=== PATIENT | female | born 2005 | race Two or more races ===

== ENCOUNTER 2024-11-05 14:14 | Emergency (ER) | payer MEDICAID, SELFPAY ==
[2024-11-05 14:15] VITALS: BMI 20.2
--- NOTE | 2024-11-05 14:25 | XR_ITS ---
Examination: PA lateral chest 2 views TECHNIQUE: Upright PA lateral chest 2 views Exam date and time: 06/05/2024 1429 hours Comparison June 27, 2019 INDICATIONS: Coughing chest pain beginning 3 days ago. FINDINGS: Normal heart size Lungs are clear. The osseous structures are intact IMPRESSION: No active disease
[2024-11-05 14:26] VITALS: BP 132/87; PULSE 121; RESP 20; TEMP 38.1; O2SAT 100
[2024-11-05] MEDS: ACETAMINOPHEN 500 MG TABLET 1000 MG PO (14:41)
--- NOTE | 2024-11-05 15:00 | EDNOTE_ITS ---
Upper Respiratory Inf. RME/HPI General Chief Complaint: Flu Like Symptoms Stated Complaint: BODYACHES, FEVER, COUGH Time Seen by Provider: 11/05/24 14:17 Arrival date/time: 11/05/24 14:14 19-year-old female with no significant medical problem presents the emergency department complains of bodyaches, cough, fever and chills ongoing for the last couple of days. Patient reports no chance of patient reports no dysuria polyuria Limitations: no limitations Related Data Previous Rx's ?Medication ?Instructions ?Recorded ondansetron HCl 4 mg tablet 4 mg PO Q8H PRN nausea and 06/02/21 (Zofran) vomiting #20 tabs cyclobenzaprine 5 mg tablet 5 mg PO TID PRN muscle spasm #15 11/14/22 tabs ibuprofen 600 mg tablet 600 mg PO Q6H #30 tabs 06/12/23 ondansetron 4 mg disintegrating 4 mg PO Q8H PRN nausea and 06/12/23 tablet vomiting #10 tabs ondansetron 4 mg disintegrating 4 mg PO Q8H PRN nausea and 06/02/24 tablet vomiting #20 tabs benzonatate 100 mg capsule 100 mg PO TID #14 caps 11/05/24 ibuprofen 600 mg tablet 600 mg PO Q6H #30 tabs 11/05/24 Allergies Allergy/AdvReac Type Severity Reaction Status Date / Time No Known Allergies Allergy Verified 06/12/23 14:46 Review of Systems Review of Systems Systems Reviewed: All systems reviewed, normal except as documented Constitutional Constitutional: Reports system reviewed and no additional complaints, except as documented, Reports body ache(s), Reports chills, Reports fever(s) and Reports headache(s) Eyes Eyes: Reports system reviewed and no additional complaints, except as documented and Denies blurry vision ENT Ears, Nose, Mouth, and Throat: Reports system reviewed and no additional complaints, except as documented, Reports headache(s), Reports nasal congestion and Reports nasal discharge Cardiovascular Cardiovascular: Reports system reviewed and no additional complaints, except as documented, Denies chest pain and Denies dyspnea Respiratory Respiratory: Reports system reviewed and no additional complaints, except as documented, Reports chest congestion, Reports cough and Denies dyspnea Gastrointestinal Gastrointestinal: Reports system reviewed and no additional complaints, except as documented and Denies abdominal pain Integumentary/Breasts Skin/Breast: Reports system reviewed and no additional complaints, except as documented and Denies rash Neurologic Neurologic: Reports system reviewed and no additional complaints, except as documented, Reports as per HPI and Reports headache(s) Past Medical History Past Medical History CARDIAC: Negative Congestive Heart Failure RESPIRATORY: Negative Chronic Obstructive Pulmonary Disease (COPD) GENITOURINARY: Negative Renal Disease ENDOCRINE: Negative Diabetes Mellitus Type 1 or Diabetes Mellitus Type 2 OTHER HISTORY: Negative Hospitalization, Autoimmune Disease, Down Syndrome, Developmental Delay, Shingles or Falls Social History SMOKING STATUS: Never smoker SUBSTANCE USE: does not use ED Exam General Limitations: Present no limitations General appearance: Present alert and in no apparent distress Head Head exam: Present atraumatic, normocephalic and normal inspection Eye Eye exam: Present normal appearance, PERRL and EOMI; Absent conjunctival injection ENT ENT exam: Present normal exam, normal oropharynx and mucous membranes moist Neck Neck exam: Present normal inspection, full ROM and trachea midline Chest Chest inspection: Present normal inspection and symmetric chest wall rise Respiratory Respiratory exam: Present normal lung sounds bilaterally; Absent respiratory distress, wheezes, stridor or prolonged expiratory phase Cardiovascular Cardiovascular exam: Present regular rate, normal rhythm and normal heart sounds Abdominal Exam Abdominal exam: Present soft and normal bowel sounds; Absent distention, tenderness, guarding, rebound or rigidity Extremities Exam Extremities exam: Present normal inspection and full ROM Back Exam Back exam: Present normal inspection and full ROM Neurological Exam Neurological exam: Present alert, oriented X3 and CN II-XII intact Psychiatric Psychiatric exam: Present normal affect and normal mood Skin Skin exam: Present warm, dry, intact and normal color Course Quality Measures none Orders Category Date Time Status Bedside COVID-19 Antigen Test NOW Care 11/05/24 14:25 Completed Bedside Influenza A&B Antigen Test NOW Care 11/05/24 14:25 Completed XR chest 2V Stat Exams 11/05/24 14:25 Completed Acetaminophen Tab [Tylenol ES Tab] Med 11/05/24 14:35 Discontinued 1,000 mg PO X1 ONE Vital Signs Vital signs: Vital Signs Temperature 100.6 F H 11/05/24 14:26 Pulse Rate 121 H 11/05/24 14:26 Respiratory Rate 20 11/05/24 14:26 Blood Pressure 132/87 H 11/05/24 14:26 Pulse Oximetry (%) 100 11/05/24 14:26 Oxygen Delivery Method Room Air 11/05/24 14:26 O2 saturation 100% room air within normal limits Upper Respiratory Infection MDM Narrative MDM Narrative:: 19-year-old female with no significant medical problem presents the emergency d epartment complains of bodyaches, cough, fever and chills ongoing for the last couple of days. Patient reports no chance of patient reports no dysuria polyuria On exam patient well-appearing patient does not appear ill or toxic in no acute distress Patient checked for flu and COVID and chest x-ray is obtained Chest x-ray shows no acute pneumonic infiltrates patient does test positive for influenza negative for COVID Symptoms highly consistent with influenza/viral illness Patient discharged home in no distress to follow-up with primary care doctor in the next 24 to 48 hours and for any worsening symptoms to return to the ER immediately Patient data External records reviewed:: [facility] previous records Clinical information provided by:: patient Social determinants that could affect healthcare access:: none Patient has the following chronic illnesses:: None How is presenting disease/condition affected by chronic disease/condition?: no chronic disease Evaluation data The following diagnostics were reviewed and interpreted by me:: lab results and radiology exam(s) Lab and/or radiology exams considered but not ordered:: Labs radiology obtained Interpretation Summary: Reviewed by me Medications / Prescriptions Medications or Prescriptions considered but not ordered:: Given Medication administrations:: Medication Administration History Discontinued Medications Acetaminophen (Acetaminophen 500 Mg Tablet) 1,000 mg PO X1 ONE Stop: 11/05/24 14:36 Last Admin: 11/05/24 14:41 Dose: 1,000 mg Documented By: MP Given Consultations Consultation(s) initiated? (list below): No Diagnosis Upper Respiratory Differential Diagnosis: upper respiratory infection, sinusitis, viral infection and pharyngitis Most likely diagnosis given after review of the tests above:: Viral infection Admission Indicated Admission indicated?: not indicated Admission Request Was there a request for admission?: No Disposition Plan Disposition Plan: Discharge Discharge Attestation Discharge Attestation: The patient and all family members were given an opportunity to ask questions and understood the discharge instructions. Discharge instructions specifically effects, indications for sooner follow up or return to the emergency department, and the expected course of current diagnosis. Patient condition: Stable Discharge Plan Plan Patient Disposition: HOME (Self Care) Disposition Comment: Stable Prescriptions/Referrals Prescriptions/Med Rec: New benzonatate 100 mg capsule 100 mg PO TID Qty: 14 0RF ibuprofen 600 mg tablet 600 mg PO Q6H Qty: 30 0RF No Action ondansetron HCl [Zofran] 4 mg tablet 4 mg PO Q8H PRN (Reason: nausea and vomiting) Qty: 20 0RF cyclobenzaprine 5 mg tablet 5 mg PO TID PRN (Reason: muscle spasm) Qty: 15 0RF ibuprofen 600 mg tablet 600 mg PO Q6H Qty: 30 0RF ondansetron 4 mg tablet,disintegrating 4 mg PO Q8H PRN (Reason: nausea and vomiting) Qty: 10 0RF ondansetron 4 mg tablet,disintegrating 4 mg PO Q8H PRN (Reason: nausea and vomiting) Qty: 20 0RF Referrals: Halle Soliman FNP [Primary Care Provider] - In 1 week Problem List Clinical Impression: Influenza Patient/Caregiver Discharge Instructions Education Materials: ED Influenza (Adult) Additional Instructions: Please follow up with your primary care doctor in the next 24-48hrs for any worsening symptoms return here immediately Print Language: Palauan Stand Alone Forms: [employer]ulu Award Info., Work/School Release, Patient Portal Info Letter PA/BENEFITS ANALYST Supervising Physician KEARA/NORMA Supervising Physician: Dr. reveles
== END 2024-11-05 15:15 | disposition home or self-care (01) ==
PROVIDERS: Emergency Provider Emergency Medicine; PCP Nurse Practitioner Family
DX: J11.1 Influenza due to unidentified influenza virus with other respiratory manifestations (principal)
CPT/HCPCS: 71046; 87400; 87811; 99283; A9270

== ENCOUNTER 2024-12-29 03:54 | Emergency (ER) | payer MEDICAID, SELFPAY ==
[2024-12-29 03:54] VITALS: BMI 20.2
[2024-12-29 04:12] VITALS: BP 110/73; PULSE 110; RESP 18; TEMP 36.6; O2SAT 98
--- NOTE | 2024-12-29 04:38 | EDRME_ITS ---
Rapid Medical Screening Exam [facility] Arrival date/time: 12/29/24 03:54 19F at approximately 12 weeks and with no significant PMH presents to ED with 2 days of pelvic pain and N/V. Patient denies dysuria, diarrhea, and vaginal bleeding. Chief Complaint: Abdominal Pain Vital signs: Vital Signs Temperature 97.9 F 12/29/24 04:12 Pulse Rate 110 H 12/29/24 04:12 Respiratory Rate 18 12/29/24 04:12 Blood Pressure 110/73 12/29/24 04:12 Pulse Oximetry (%) 98 12/29/24 04:12
--- NOTE | 2024-12-29 04:38 | XR_ITS ---
Examination: Complete OB ultrasound, less than 14 weeks, transabdominal Date and time of exam: December 29, 2024 0512 hrs. Indications: Pelvic pain beginning 11:00 AM yesterday, vaginal bleeding beginning 1 Technique: Obstetrical ultrasound images less than 14 weeks performed via transabdominal imaging Findings: A normal shaped single intrauterine gestation is present in the uterus. pole 5.3 cm corresponds to 12 weeks 0 day gestational age Cardiac motion 160 BPM Uterine area of fibroid degeneration 4.2 cm Adjacent subchorionic hemorrhage 2.6 x 0.9 x 2.4 cm Ultrasonographic survey of visible structures unremarkable. Amniotic fluid volume appears appropriate for this estimated gestational age. Right ovary 2.9 x 3.0 cm arterial flow 15 mm corpus luteum cyst Left ovary 2.9 x 3.2 cm arterial flow Impression: Viable intrauterine gestation 12 weeks 0 days Recommend short-term follow-up transvaginal pelvic sonography given the subchorionic hemorrhage.
--- NOTE | 2024-12-29 04:53 | PD.EDABDPN ---
ED Abdominal Pain RME/HPI General Chief Complaint: Abdominal Pain Stated complaint: LOWER ABD PAIN Time seen by provider: 12/29/24 04:52 Arrival date/time: 12/29/24 03:54 Source: patient Mode of arrival: ambulatory Limitations: no limitations RME / HPI RME / HPI narrative: 12/29/24 03:54 19F at approximately 12 weeks and with no significant PMH presents to ED with 2 days of pelvic pain and N/V. Patient denies dysuria, diarrhea, and vaginal bleeding. Dr. Bailey?s Main ED Evaluation: Related Data Previous Rx's ?Medication ?Instructions ?Recorded ondansetron HCl 4 mg tablet 4 mg PO Q8H PRN nausea and 06/02/21 (Zofran) vomiting #20 tabs cyclobenzaprine 5 mg tablet 5 mg PO TID PRN muscle spasm #15 11/14/22 tabs ibuprofen 600 mg tablet 600 mg PO Q6H #30 tabs 06/12/23 ondansetron 4 mg disintegrating 4 mg PO Q8H PRN nausea and 06/12/23 tablet vomiting #10 tabs ondansetron 4 mg disintegrating 4 mg PO Q8H PRN nausea and 06/02/24 tablet vomiting #20 tabs benzonatate 100 mg capsule 100 mg PO TID #14 caps 11/05/24 ibuprofen 600 mg tablet 600 mg PO Q6H #30 tabs 11/05/24 Allergies Allergy/AdvReac Type Severity Reaction Status Date / Time No Known Allergies Allergy Verified 06/12/23 14:46 Review of Systems Review of Systems Systems Reviewed: All systems reviewed, normal except as documented Past Medical History Past Medical History CARDIAC: Negative Congestive Heart Failure RESPIRATORY: Negative Chronic Obstructive Pulmonary Disease (COPD) GENITOURINARY: Negative Renal Disease ENDOCRINE: Negative Diabetes Mellitus Type 1 or Diabetes Mellitus Type 2 OTHER HISTORY: Negative Hospitalization, Autoimmune Disease, Down Syndrome, Developmental Delay, Shingles or Falls Social History SMOKING STATUS: Never smoker SUBSTANCE USE: does not use ED Exam General Limitations: Present no limitations General appearance: Present alert and in no apparent distress Head Head exam: Present atraumatic Eye Eye exam: Present normal appearance, PERRL and EOMI ENT ENT exam: Present normal exam, normal oropharynx and mucous membranes moist Neck Neck exam: Present normal inspection, full ROM and trachea midline Chest Chest inspection: Present normal inspection and symmetric chest wall rise Respiratory Respiratory exam: Present normal lung sounds bilaterally Cardiovascular Cardiovascular exam: Present regular rate, normal rhythm and normal heart sounds Abdominal Exam Abdominal exam: Present soft and normal bowel sounds Extremities Exam Extremities exam: Present normal inspection and full ROM Back Exam Back exam: Present normal inspection and full ROM Neurological Exam Neurological exam: Present alert, oriented X3 and CN II-XII intact Psychiatric Psychiatric exam: Present normal affect and normal mood Skin Skin exam: Present warm, dry, intact and normal color Course Quality Measures none Orders Category Date Time Status US OB <= 14 weeks fetus Stat Exams 12/29/24 04:38 Ordered Beta HCG,Quantitative Stat Lab 12/29/24 04:38 Ordered CBC Stat Lab 12/29/24 04:38 Ordered CMP [Comprehensive Metabolic Panel] Stat Lab 12/29/24 04:38 Ordered Urinalysis, C/S if Indicated Stat Lab 12/29/24 04:39 Ordered Metoclopramide [Reglan] Med 12/29/24 04:38 Discontinued 10 mg PO X1 ONE Vital Signs Vital signs: Vital Signs Temperature 97.9 F 12/29/24 04:12 Pulse Rate 110 H 12/29/24 04:12 Respiratory Rate 18 12/29/24 04:12 Blood Pressure 110/73 12/29/24 04:12 Pulse Oximetry (%) 98 12/29/24 04:12 Abdominal Pain MDM MDM Narrative MDM Narrative:: Scribe Attestation: I, Stephanie Callahan, am scribing for and in the presence of Dr. Bailey. Provider Notation: Although this document has been carefully reviewed, there may still be some phonetic and other typographical errors. These errors are purely grammatical due to imperfections in the software program and should not be construed in any way to compromise the substance of the patient's medical care during this visit. Patient data External records reviewed:: [facility] previous records Clinical information provided by:: patient Social determinants that could affect healthcare access:: none Patient has the following chronic illnesses:: see PMH How is presenting disease/condition affected by chronic disease/condition?: uneffected by Evaluation data The following diagnostics were reviewed and interpreted by me:: lab results Lab and/or radiology exams considered but not ordered:: n/a Medications / Prescriptions Medication administrations:: Medication Administration History Discontinued Medications Metoclopramide HCl (Metoclopramide 5 Mg Tablet) 10 mg PO X1 ONE Stop: 12/29/24 04:39 Last Admin: 12/29/24 04:58 Dose: 10 mg Documented By: ANAHI Discharge Plan Prescriptions/Referrals Prescriptions/Med Rec: No Action ondansetron HCl [Zofran] 4 mg tablet 4 mg PO Q8H PRN (Reason: nausea and vomiting) Qty: 20 0RF cyclobenzaprine 5 mg tablet 5 mg PO TID PRN (Reason: muscle spasm) Qty: 15 0RF ibuprofen 600 mg tablet 600 mg PO Q6H Qty: 30 0RF ondansetron 4 mg tablet,disintegrating 4 mg PO Q8H PRN (Reason: nausea and vomiting) Qty: 10 0RF ondansetron 4 mg tablet,disintegrating 4 mg PO Q8H PRN (Reason: nausea and vomiting) Qty: 20 0RF benzonatate 100 mg capsule 100 mg PO TID Qty: 14 0RF ibuprofen 600 mg tablet 600 mg PO Q6H Qty: 30 0RF Patient/Caregiver Discharge Instructions Print Language: Thai
[2024-12-29] MEDS: METOCLOPRAMIDE 5 MG TABLET 10 MG PO (04:58)
[2024-12-29 05:11] LABS: Collection Type, Urine Clean Catch
[2024-12-29 05:12] LABS: Basophils % (Auto) 0 % (0-2.5); Eosinophils # (Auto) 0.1 Thou/mm3 (0.0-0.5); Eosinophils % (Auto) 1 % (0-10); Hemoglobin 11.7 g/dL (12.0-16.0); Immature Granulocytes % (Auto) 0 % (0-0); Immature Granulocytes Auto 0.02 Thou/mm3 (0.00-0.00); Lymphocytes # (Auto) 1.6 Thou/mm3 (1.0-4.8); Lymphocytes % (Auto) 17 % (10-50); Mean Corpuscular HGB Conc 34.4 g/dl (31.0-37.0); Mean Corpuscular Hemoglobin 26.5 pg (25.0-35.0); Mean Corpuscular Volume 77 fL (80-100); Monocytes # (Auto) 0.6 Thou/mm3 (0.0-0.8); Monocytes % (Auto) 7 % (0-12); Neutrophils # (Auto) 6.8 Thou/mm3 (1.8-7.7); Neutrophils % (Auto) 75 % (37-80); Nucleated Red Blood Cell % 0 /100 WBC (0); Platelet Count 213 Thou/mm3 (140-440); RDW Standard Deviation 49.6 fL (36.4-46.3); Red Blood Count 4.42 Miln/mm3 (4.00-5.20); White Blood Count 9.1 Thou/mm3 (3.6-11.0)
[2024-12-29 05:18] LABS: Bacteria,Urine 1+; Bilirubin,Urine Negative (Negative); Blood,Urine 2+ (Negative); Clarity,Urine Turbid (Clear/Hazy); Color,Urine Lt-Yellow (Lt Yel-Yel); Glucose, Urine Negative (Negative); Ketones,Urine Negative (Negative); Leukocyte Esterase,Urine Positive (Negative); Nitrite,Urine Negative (Negative); PH,Urine 6.5 (5.0-7.0); Protein,Urine Negative (Neg - Trace); RBC,Urine 2 /hpf (0-3); Specific Gravity,Urine 1.011 (1.001-1.035); Squamous Epithelial Cell,Urine 9 /hpf (0-5); Urobilinogen,Urine Negative mg/dL (0.0-1.0); WBC,Urine 18 /hpf (0-5)
[2024-12-29 05:28] LABS: Culture Indicated,Urine Yes
[2024-12-29 06:18] VITALS: BP 119/76; PULSE 96; RESP 18; TEMP 36.6; O2SAT 97
[2024-12-29 06:27] LABS: Alanine Aminotransferase 10 U/L (10-49); Albumin, Serum 4.3 gm/dL (3.5-5.0); Albumin/Globulin Ratio 1.5 (1.2-2.2); Alkaline Phosphatase 49 U/L (46-116); Anion Gap 7 (7-16); Aspartate Amino Transferase 15 U/L (0-34); BUN/Creatinine Ratio 16 Ratio (12-20); Bilirubin,Total 0.2 mg/dL (0.3-1.2); Blood Urea Nitrogen 8 mg/dL (9-23); Carbon Dioxide 21.9 mMol/L (20.0-31.0); Chloride 107 mMol/L (98-107); Creatinine (Component) 0.5 mg/dL (0.6-1.3); Estimated Creatinine Clearance 150.4 mL/min (>60); Globulin 2.9 gm/dL (2.3-3.5); Glucose 97 mg/dL (74-106); Osmolality,Calculated 270 (275-295); Potassium 4.1 mMol/L (3.4-5.1); Sodium 136 mMol/L (136-145); Total Protein 7.2 gm/dL (5.7-8.2); eGFR > 60 See Note
[2024-12-29] MEDS: NITROFURANTOIN MACRO 100 MG CAPSULE PO (06:40)
--- NOTE | 2024-12-29 06:41 | EDNOTE_ITS ---
ED Abdominal Pain RME/HPI General Chief Complaint: Abdominal Pain Stated complaint: LOWER ABD PAIN Time seen by provider: 12/29/24 04:52 Arrival date/time: 12/29/24 03:54 RME / HPI RME / HPI narrative: 12/29/24 03:54 19F at approximately 12 weeks and with no significant PMH presents to ED with 2 days of pelvic pain and N/V. Patient denies dysuria, diarrhea, and vaginal bleeding. DR. GIMENEZ MAIN ED EVALUATION: 19 year old female who is 12 weeks , G1, P0, presents to the Emergency Department with complaint of pelvic pain. Pain is rated mild and described as cramping. Associated symptoms include mild vaginal bleeding, nausea, and vomiting. Symptoms are mild. No other symptoms reported at this time. PMHx: Denies any PMHx, surgeries, daily medications, or known allergies. Social Hx: No tobacco, alcohol, or substance use. Related Data Previous Rx's ?Medication ?Instructions ?Recorded ondansetron HCl 4 mg tablet 4 mg PO Q8H PRN nausea and 06/02/21 (Zofran) vomiting #20 tabs cyclobenzaprine 5 mg tablet 5 mg PO TID PRN muscle spa sm #15 11/14/22 tabs ibuprofen 600 mg tablet 600 mg PO Q6H #30 tabs 06/12 ondansetron 4 mg disintegrating 4 mg PO Q8H PRN nausea and 06/12/23 tablet vomiting #10 tabs ondansetron 4 mg disintegrating 4 mg PO Q8H PRN nausea and 06/02/24 tablet vomiting #20 tabs benzonatate 100 mg capsule 100 mg PO TID #14 caps 10/20 06/12 ibuprofen 600 mg tablet 600 mg PO Q6H #30 tabs 11/05 nitrofurantoin 100 mg PO Q12H 7 days #14 ca ps 12/29/24 monohydrate/macrocrystals 100 mg capsule (Macrobid) Allergies Allergy/AdvReac Type Severity Reaction Status Date / Time No Known Allergies Allergy Verified 06/12/23 14:46 Review of Systems Review of Systems Systems Reviewed: All systems reviewed, normal except as documented Narrative Review of Systems: GEN: No fever, no chills, no weight loss EYES: No discharge, no visual changes, no pain HEENT: No ear pain, no congestion, no sore throat PULM: No shortness of breath, no cough, no congestion CV: No chest pain, no dyspnea on exertion, no palpitations GI: + nausea, + vomiting, no diarrhea, + pelvic pain, no constipation : No frequency, no urgency and no dysuria + mild vaginal bleeding MUSC/SKEL: No joint pain, no back pain SKIN: No rash PSYCH: No hallucinations, no depression HEME/LYMPH: No easy bleeding or bruising tendencies NEURO: No weakness, no headache Past Medical History Past Medical History CARDIAC: Negative Congestive Heart Failure RESPIRATORY: Negative Chronic Obstructive Pulmonary Disease (COPD) GENITOURINARY: Negative Renal Disease ENDOCRINE: Negative Diabetes Mellitus Type 1 or Diabetes Mellitus Type 2 OTHER HISTORY: Negative Hospitalization, Autoimmune Disease, Down Syndrome, Developmental Delay, Shingles or Falls Social History SMOKING STATUS: Never smoker SUBSTANCE USE: does not use ALCOHOL: Never ED Exam Narrative Physical exam: GENERAL APPEARANCE: alert and oriented x 4, well-developed, well-nourished, no acute distress VITALS: All vitals were reviewed and the pulse ox is 100% on room air, which is normal according to my interpretation. HEENT: Normocephalic, atraumatic; pupils equal, round, reactive to light; EOMI; mucous membranes pink, moist; oropharynx clear NECK: Supple LUNGS: CTABL; no wheezes, no rales, no rhonchi HEART: Regular rate, regular rhythm; normal S1, S2; no murmurs ABDOMEN: non distended; normal BS; soft, no tenderness, no guarding, no rebound; no masses, no organomegaly, no hernia BACK: no CVA tenderness EXTREMITIES: atraumatic; no edema NEUROLOGIC: awake; alert and oriented x4; cranial nerves II-XII grossly intact; no focal sensory or motor deficits PSYCHIATRIC: appropriate mood and affect SKIN: warm, dry, normal color; no rashes Course Quality Measures none Orders Category Date Time Status US OB <= 14 weeks fetus Stat Exams 12/29/24 04:38 Completed Beta HCG,Quantitative Stat Lab 12/29/24 05:05 Completed CBC Stat Lab 12/29/24 05:05 Completed CMP [Comprehensive Metabolic Panel] Stat Lab 12/29/24 05:05 Completed Urinalysis, C/S if Indicated Stat Lab 12/29/24 05:04 Completed Urine Culture Stat Lab 12/29/24 05:04 Received Metoclopramide [Reglan] Med 12/29/24 04:38 Discontinued 10 mg PO X1 ONE Nitrofurantoin Macro [Macrobid] Med 12/29/24 06:23 Discontinued 100 mg PO X1 ONE Vital Signs Vital signs: Vital Signs Temperature 97.9 F 12/29/24 04:12 Pulse Rate 110 H 12/29/24 04:12 Respiratory Rate 18 12/29/24 04:12 Blood Pressure 110/73 12/29/24 04:12 Pulse Oximetry (%) 98 12/29/24 04:12 Abdominal Pain MDM MDM Narrative MDM Narrative:: I, Angela Hamm am scribing for and in the presence of Dr. Gimenez. Patient data External records reviewed:: [facility] previous records (Reviewed last ED visit dated 11/05/24, discharged with the following: Influenza) Clinical information provided by:: patient Social determinants that could affect healthcare access:: none Patient has the following chronic illnesses:: 12 weeks , G1, P0. Denies any PMHx, surgeries, daily medications, or known allergies. How is presenting disease/condition affected by chronic disease/condition?: no chronic disease Evaluation data The following diagnostics were reviewed and interpreted by me:: lab results and radiology exam(s) Lab and/or radiology exams considered but not ordered:: none Interpretation Summary: Procedure(s): US OB <= 14 weeks fetus Accession Number(s): [id number] cc: Halle Soliman; Ravi Barrow MD; Augusto Kyle PA-C~ Examination: Complete OB ultrasound, less than 14 weeks, transabdominal Date and time of exam: December 29, 2024 0512 hrs. Indications: Pelvic pain beginning 11:00 AM yesterday, vaginal bleeding beginning 1 Technique: Obstetrical ultrasound images less than 14 weeks performed via transabdominal imaging Findings: A normal shaped single intrauterine gestation is present in the uterus. pole 5.3 cm corresponds to 12 weeks 0 day gestational age Cardiac motion 160 BPM Uterine area of fibroid degeneration 4.2 cm Adjacent subchorionic hemorrhage 2.6 x 0.9 x 2.4 cm Ultrasonographic survey of visible structures unremarkable. Amniotic fluid volume appears appropriate for this estimated gestational age. Right ovary 2.9 x 3.0 cm arterial flow 15 mm corpus luteum cyst Left ovary 2.9 x 3.2 cm arterial flow Impression: Viable intrauterine gestation 12 weeks 0 days Recommend short-term follow-up transvaginal pelvic sonography given the subchorionic hemorrhage. Dictated By: Ravi Barrow MD Medications / Prescriptions Medications or Prescriptions considered but not ordered:: none Medication administrations:: Medication Administration History Discontinued Medications Metoclopramide HCl (Metoclopramide 5 Mg Tablet) 10 mg PO X1 ONE Stop: 12/29/24 04:39 Last Admin: 12/29/24 04:58 Dose: 10 mg Documented By: ANAHI Nitrofurantoin Macrocrystals (Nitrofurantoin Macro 100 Mg Capsule) 100 mg PO X1 ONE Stop: 12/29/24 06:24 Last Admin: 12/29/24 06:40 Dose: 100 mg Documented By: ANAHI see above Consultations Consultation(s) initiated? (list below): No Diagnosis Differential diagnosis abdominal pain: abdominal pain and other (UTI, vaginal bleeding during , miscarriage) Most likely diagnosis given after review of the tests above:: Vaginal bleeding during Subchorionic hemorrhage UTI Admission Indicated Admission indicated?: not indicated Admission Request Was there a request for admission?: No Disposition Plan Disposition Plan: Discharge Discharge Attestation Discharge Attestation: The patient and all family members were given an opportunity to ask questions and understood the discharge instructions. Discharge instructions specifically effects, indications for sooner follow up or return to the emergency department, and the expected course of current diagnosis. Patient condition: Stable Discharge Plan Plan Patient Disposition: HOME (Self Care) Prescriptions/Referrals Prescriptions/Med Rec: New nitrofurantoin monohyd/m-cryst [Macrobid] 100 mg capsule 100 mg PO Q12H 7 Days Qty: 14 0RF Rx Instructions: must administer with a meal/food No Action ondansetron HCl [Zofran] 4 mg tablet 4 mg PO Q8H PRN (Reason: nausea and vomiting) Qty: 20 0RF cyclobenzaprine 5 mg tablet 5 mg PO TID PRN (Reason: muscle spasm) Qty: 15 0RF ibuprofen 600 mg tablet 600 mg PO Q6H Qty: 30 0RF ondansetron 4 mg tablet,disintegrating 4 mg PO Q8H PRN (Reason: nausea and vomiting) Qty: 10 0RF ondansetron 4 mg tablet,disintegrating 4 mg PO Q8H PRN (Reason: nausea and vomiting) Qty: 20 0RF benzonatate 100 mg capsule 100 mg PO TID Qty: 14 0RF ibuprofen 600 mg tablet 600 mg PO Q6H Qty: 30 0RF Referrals: Halle Soliman FNP [Primary Care Provider] - In 1 week Problem List Clinical Impression: Vaginal bleeding during , Subchorionic hemorrhage, UTI (urinary tract infection) Patient/Caregiver Discharge Instructions Education Materials: [facility] Subchorionic Hemorrhage Print Language: Botswanan Stand Alone Forms: [employer]ulu Award Info., Patient Portal Info Letter
--- NOTE | 2024-12-29 06:59 | PRELIM_ITS ---
Obstetric ultrasound(transabdominal). December 29, 2024 0512 hours Clinical history: Pain, no bleeding; 12 weeks Technique: Real-time ultrasound was performed using Duplex scanning including arterial inflow, venous outflow, color and spectral Doppler analysis of both ovaries. Findings: There is an intrauterine gestation with a single live fetus of mean gestational age 12weeks and 0days (CRL= 9.3cm). cardiac activity is present at heart rate of 160beats per minute. There is possible subchorionic hemorrhage measuring 2.6 x 0.9 x 2.4 cm. There is an oval hypoechoic like structure inferior/lateral uterus, measuring 4.2 x 1.8 x 3.3 cm. The uterus measures 11.2 x 18 x 10.3 cm. The right ovary measures 2.9 x 2.5 x 3cm. There is a possible corpus luteum cyst, measuring 1.5 x 1.1 x 1.3 cm. The left ovary measures 2.9 x 2.9 x 3.2 cm and is unremarkable. There is nofree fluid in the pelvis. Impression: Intrauterine gestation with a single live fetus of mean gestational age 12 weeks and 0 days. Possible subchorionic hemorrhage. Oval hypoechoic like structure inferior/lateral uterus, which may represent fibroid. Recommend clinical correlation and follow-up. Report Electronically Signed By: Maranda Vásquez 12/29/2024 6:59:34 AM [EST]
--- NOTE | 2024-12-29 07:25 | PC.NURSE ---
Patient in ER room 8 patient approx 12 weeks c/o vaginal bleeding x 1 and lower abdominal cramping, patient , skin warm dry and pink, patient states pain to lower abdomen 7/10 at this time and is tolerable, patient awaiting u/s and lab results, call light within reach. SO at bedside and patient has no other needs at this time.
[2024-12-29 07:30] VITALS: BP 116/73; PULSE 96; RESP 16; TEMP 36.9; O2SAT 100
[2024-12-29 07:30] LABS: Beta HCG,Quantitative 148706 mIU/mL (<5.0)
== END 2024-12-29 08:21 | disposition home or self-care (01) ==
PROVIDERS: Physician Assistant; Emergency Provider Emergency Medicine; PCP Nurse Practitioner Family
DX: O20.8 Other hemorrhage in early pregnancy (principal); O23.41 Unspecified infection of urinary tract in pregnancy, first trimester; Z3A.12 12 weeks gestation of pregnancy
CPT/HCPCS: 36415; 76801; 80053; 81001; 84702; 85025; 87086; 99284; A9270

== ENCOUNTER 2025-05-06 10:50 | Outpatient (AMB) | payer MEDICAID, SELFPAY ==
[2025-05-06 11:03] VITALS: BP 115/71; PULSE 102; RESP 18; TEMP 36.2; O2SAT 98; BMI 24.5
--- NOTE | 2025-05-06 11:03 | AMB.OBINITIA ---
Vital Signs 05/06/25 11:03 Height 1.63 m Height Method Stated Weight 65.091 kg Weight Measurement Method Standing Scale BMI 24.5 BP 115/71 Blood Pressure Source Automatic Cuff Blood Pressure Location Left Upper Arm Position Sitting Respiration 18 Pulse 102 H Pulse Source Monitor Temp 97.2 F Temp Source Oral Pulse Oximetry (%) 98 Oxygen Delivery Method Room Air Allergies/Home Meds Allergies & Medications Allergies No Known Allergies Allergy (Verified 05/06/25 11:05) Medication Reconciliation ondansetron HCl 4 mg tablet (Zofran) 4 mg PO Q8H PRN nausea and vomiting #20 tabs 06/02/21 [Rx Confirmed 05/06/25] cyclobenzaprine 5 mg tablet 5 mg PO TID PRN muscle spasm #15 tabs 11/14/22 [Rx Confirmed 05/06/25] ibuprofen 600 mg tablet 600 mg PO Q6H #30 tabs 06/12/23 [Rx Confirmed 05/06/25] ondansetron 4 mg disintegrating tablet 4 mg PO Q8H PRN nausea and vomiting #10 tabs 06/12/23 [Rx Confirmed 05/06/25] ondansetron 4 mg disintegrating tablet 4 mg PO Q8H PRN nausea and vomiting #20 tabs 06/02/24 [Rx Confirmed 05/06/25] benzonatate 100 mg capsule 100 mg PO TID #14 caps 11/05/24 [Rx Confirmed 05/06/25] ibuprofen 600 mg tablet 600 mg PO Q6H #30 tabs 11/05/24 [Rx Confirmed 05/06/25] Intake Visit Data Collection New Patient or Established: Established Patient (seen at [facility] within 3 years) 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:: OB TRANSFER Seen by Clinical Staff ONLY (RN/MA): No French Comber Required: No Do You Feel Safe at Home: Yes Authorities Contacted: N/A PCP or OBGYN visit in last 3 months: Yes Hx Now: Yes Are you currently on any form of Control: No Last menstrual period: 10/05/24 Pain Present Currently: No Pain Scale Used: Ferrer-Matute/Numerical Pain scale:: 0 Smoking Status Smoking Status: Never smoker Questionnaires Covid-19 Vaccine Questionnaire Has patient been vacinated for Covid-19 Have you been vacinated for Covid-19: Yes PHQ-9 PHQ-2 Over the last 2 weeks, how often have you been bothered by any of the following problems? 1. Little interest or pleasure in doing things: not at all 2. Feeling down, depressed, or hopeless: not at all Total score: 0 PHQ-9 3. Trouble falling or staying asleep, or sleeping too much: Not at all 4. Feeling tired or having little energy: Not at all 5. Poor appetite or overeating: Not at all 6. Feeling bad about yourself - or that you are a failure or have let yourself or your family down: Not at all 7. Trouble concentrating on things, such as reading the newspaper or watching television: Not at all 8. Moving or speaking so slowly that other people could have noticed? - Or the opposite - being so fidgety or restless that you have been moving around a lot more than usual: not at all 9. Thoughts that you would be better off or of hurting yourself in some way: Not at all Total score: 0 If you checked off any problems, how difficult have these problems made it for you to do your work, take care of things at home, or get along with other people?: not difficult at all Source: Developed by Drs. Dom Conklin, Yajaira Oh, Hakeem Chou and colleagues, with an educational emani from [employer] Depression screen completed yes Social History Living Situation History Marital Status: Single Lives With: Family Housing: House Tobacco History Smoking Status: Never smoker Second Hand Smoke Exposure: No Alcohol History Alcohol Intake: Never Domestic Abuse History Do You Feel Safe at Home: Yes History of Present Illness HPI Narrative 20 yo for OBI. Transfer from [facility] with records. lmp 10/07/25, menses q month. EDC 07/12/25. No existing PMH, no social habit. no surgery. + chlamydia. patient and partner were treated. No ASHLYN in chart. abnormal 1hr gtt per patient. 3 hr gtt was not done. patient will do 3hr this week. NIPT/AFP and carrier screen-, A+,abs-,rpr;;nr, RUB imm, HBSAG-,HIV-,HC-, GC-/CT=, OB sono 02/07/25: 19wk. 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 fetus active, abnormal 1 hr gtt per patinet, she will do 3 hr gtt, denies PTL complaints Get 3 hr gtt done, TDAP, schedule OB sono for growth. discuss diet and exercise. discuss PTL precaution. continue PNV, rtc 2 week Menstrual History Menstrual reliability: definite Flow: normal Menstrual regularity: regular Monthly: Yes Age at menarche: 12 On control pills at conception: No OB History : 1 Para: 0 Hx # Pregnancies: 0 Hx Total # of Abortions (Spontaneous & Elective): 0 # of Living Children: 0 Infection History & Risk Evaluation History of STDs: none HIV risk evaluation: low risk Hepatitis B risk evaluation: low risk Patient or partner has history of Genital Herpes: No Varicella/chicken pox status: immunized Genetic Screening & History Genetic Screening/Teratology Counseling - Includes patient, baby's father, or anyone in either family with: 1. Patient's age 35 years or older as of estimated date of delivery: No 2. Thalassemia (Amharic, Serbian, Mediterranean, or Background); MCV less than 80: No 3. Neural Tube Defect (Meningomyelocele, Spina Bifida, or Anencephaly): No 4. Congenital Heart Defect: No 5. Down Syndrome: No 6. Ari-Sachs (Ashkenazi Judaism, Cajun, Sinhala Georgian): No 7. Noé Disease (Ashkenazi Judaism): No 8. Familial Dysautonomia (Ashkenazi Judaism): No 9. Sickle Cell Disease or Trait (): No 10. Hemophilia or other blood disorders: No 11. Muscular Dystrophy: No 12. Cystic Fibrosis: No 14. Mental Retardation/Autism: No 15. Other inherited genetic or chromosomal disorder: No 16. Maternal Metabolic Disorder (EG,TYPE 1 Diabetes, PKU): No 17. Patient or baby's father had a child with defects not listed above: No 18. Recurrent loss or a stillbirth: No 19. Medications (including supplements, vitamins, herbs or otc drugs)/illicit/recreational drugs/alcohol since last menstrual period: No 20. Any other: No Infection History 1. Live with someone with TB or exposed to TB: No 2. Rash or viral illness since last menstrual period: No 3. Hepatitis B,C: No Other (see comments) Source: [employer] Review of Systems Review of Systems Systems Reviewed: All systems reviewed, normal except as documented Exam General Limitations: no limitations General Appearance: alert, in no apparent distress, comfortable, cooperative, healthy appearing, well developed and well groomed Chest Chest inspection: Present normal inspection and symmetric chest wall rise Resp Respiratory exam: Present normal lung sounds bilaterally Card Cardiovascular exam: Present regular rate, normal rhythm and normal heart sounds Abdominal Abdominal exam: Present soft and normal bowel sounds Psych Psychiatric exam: Present normal affect and normal mood Office Procedures OB Clinic LOC & Office Proc's Nursing/Assessment Patient Status: Established Patient OB Clinic Nursing Assessment: Medication Reconciliation, Update PMH in EMR and Vital Signs OB Clinic Coordination of Care: Education Complex Pt/Fam, Consent,records obtained, informed consent, Lab and Imaging orders, Results/Orders obtained and Staff clarify orders Special Needs: Heart tones Established Patient Charge Established Patient Point Assignment: 115 Established Patient Point Charge: EP Level 3 (80-115) Injection/Vaccine Admin Admin 1st Vaccine: Yes Immunizations diphth,pertus(acell),tetanus 2.5 Lf unit-8 mcg-5 Lf/0.5mL IM syringe Performing Provider: Carmenza Bustos CNM Performing Location: [facility] Administered by: Rhoda Harrison MA on 05/06/25 12:03 Dose Route Admin Location Dispensed Lot Number Expiration Date [facility] Bottom Bleacher 0.5 mL IM Right Deltoid 0.5 mL [id number] 07/15/27 [id number] DefenCall VIS Given Date VIS Provided VIS Publication Date 05/06/25 Single Vaccine 24 Eligibility Eligibility Date Funding Source Public Non-[facility] Assessment & Plan Diagnosis / Problem List (1) Supervision of high risk , unspecified, third trimester: Status: Acute (2) Uterine size date discrepancy, condition: Status: Acute Plan nuswab ASHLYN. patient will do 3 hr gtt this week. schedule sono at [facility] for dates, discuss ptl precaution, hydrate, TDAP. RTC 3 week Additional Plan Follow Up: 3 Weeks (obc)
== END 2025-05-06 11:38 | disposition home or self-care (01) ==
LOC: HODSOBC 10:50
PROVIDERS: Supervising Provider Advanced Practice Midwife; Visit Provider Advanced Practice Midwife
DX: O09.893 Supervision of other high risk pregnancies, third trimester (principal); O26.843 Uterine size-date discrepancy, third trimester; Z3A.30 30 weeks gestation of pregnancy; Z23 Encounter for immunization
CPT/HCPCS: 90471; 90715; 99213; G0463

== ENCOUNTER 2025-06-03 11:14 | Outpatient (AMB) | payer MEDICAID, SELFPAY ==
[2025-06-03 11:32] VITALS: BP 124/78; PULSE 99; RESP 17; TEMP 37; O2SAT 99; BMI 25.3
--- NOTE | 2025-06-03 11:32 | OBCLNT_ITS ---
Vital Signs 06/03/25 11:32 Height 1.63 m Height Method Measured Weight 66.905 kg Weight Measurement Method Standing Scale BMI 25.3 BP 124/78 Blood Pressure Source Automatic Cuff Blood Pressure Location Right Upper Arm Position Sitting Respiration 17 Pulse 99 Pulse Source Monitor Temp 98.6 F Temp Source Temporal Artery Scan Pulse Oximetry (%) 99 Oxygen Delivery Method Room Air Allergies/Home Meds Allergies & Medications Allergies No Known Allergies Allergy (Verified 06/03/25 11:32) Intake Visit Data Collection New Patient or Established: Established Patient (seen at [facility] within 3 years) 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:: OBC Consent obtained for Telemed Visit: No Seen by Clinical Staff ONLY (RN/MA): No Duplicator Punch Set Up Operator Required: No Do You Feel Safe at Home: Yes Authorities Contacted: N/A PCP or OBGYN visit in last 3 months: Yes Date of Last PCP or OBGYN visit: 05/06/25 Hx Now: Yes Are you currently on any form of Control: No Pain Present Currently: No Pain Scale Used: Ferrer-Matute/Numerical Pain scale:: 0 Smoking Status Smoking Status: Never smoker Questionnaires Covid-19 Vaccine Questionnaire Has patient been vacinated for Covid-19 Have you been vacinated for Covid-19: Yes PHQ-9 PHQ-2 Over the last 2 weeks, how often have you been bothered by any of the following problems? 1. Little interest or pleasure in doing things: not at all PHQ-9 3. Trouble falling or staying asleep, or sleeping too much: Not at all 4. Feeling tired or having little energy: Not at all 5. Poor appetite or overeating: Not at all 6. Feeling bad about yourself - or that you are a failure or have let yourself or your family down: Not at all 7. Trouble concentrating on things, such as reading the newspaper or watching television: Not at all 8. Moving or speaking so slowly that other people could have noticed? - Or the opposite - being so fidgety or restless that you have been moving around a lot more than usual: not at all 9. Thoughts that you would be better off or of hurting yourself in some way: Not at all If you checked off any problems, how difficult have these problems made it for you to do your work, take care of things at home, or get along with other people?: not difficult at all Source: Developed by Drs. Dom Conklin, Yajaira Oh, Hakeem Chou and colleagues, with an educational emani from [employer]. 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 fetus active, abnormal 1 hr gtt per patinet, she will do 3 hr gtt, denies PTL complaints Get 3 hr gtt don e, TDAP, schedule OB sono for growth. discuss diet and exercise. discuss PTL precaution. continue PNV, rtc 2 week 06/03/25 -?-?-?-?-?-?-?-?-?-?-?-?- 34w 1d 66.905 kg 124/78 absent cephalic 35 135 active doing well, fetus active. no ptl complaints. no leaking or bleeding. 3hr gtt was normal. ASHLYN: BV+, GC/CT-. patient will start flagyl 500 bid x7, . sono [facility] at [facility] pending complete flagyl. discuss safe sex, call for sono results. discuss ptl precaution, fkc bid. continue pnv. increase fluid. rtc 2 week obc LAURYN Calculator Estimated Delivery Date Method Current WG Current Estimate 07/14/25 LMP (Certain) 34w 1d Notes Visit Date: 05/06/25 Last Updated by: Carmenza Bustos CNM 20 yo . LAURYN 07/12/25. lmp 10/07/25. 02/07 : OB sono 19w. LAURYN 07/09/25. A+,abs-,rpr;;nr, rub imm, GC-/CT+/treated, HBSAG-,HCV-, HIV- Office Procedures OB Clinic LOC & Office Proc's Nursing/Assessment Patient Status: Established Patient OB Clinic Nursing Assessment: Medication Reconciliation, Update PMH in EMR and Vital Signs OB Clinic Coordination of Care: Complex Care and Chronic Disease 1-5, Consent,records obtained, informed consent, Education Simp Pt/Fam and 4+ Authorizations needed Special Needs: Heart tones Established Patient Charge Established Patient Point Assignment: 130 Established Patient Point Charge: EP Level 4 (120-155) Assessment & Plan Diagnosis / Problem List (1) Uterine size date discrepancy, condition: Status: Acute (2) Supervision of high risk , unspecified, third trimester: Status: Acute Plan Discussed test of cure for gonorrhea and Chlamydia were negative. Patient had positive BV on the new swab. Treated with Flagyl 500 twice daily. Discussed safe sex. Increase fluids. Discussed labor precautions. And I will call [facility] for sono results. Return in a week for GBS. Additional Plan Follow Up: 1 Week (obc)
== END 2025-06-03 12:14 | disposition home or self-care (01) ==
LOC: HODSOBC 11:14
PROVIDERS: Supervising Provider Advanced Practice Midwife; Visit Provider Advanced Practice Midwife
DX: O09.893 Supervision of other high risk pregnancies, third trimester (principal); O26.843 Uterine size-date discrepancy, third trimester; Z3A.34 34 weeks gestation of pregnancy
CPT/HCPCS: 99214; G0463

== ENCOUNTER 2025-06-10 10:52 | Outpatient (AMB) | payer MEDICAID, SELFPAY ==
[2025-06-10 11:06] VITALS: BP 118/78; PULSE 84; RESP 17; TEMP 36.6; O2SAT 99; BMI 25.1
--- NOTE | 2025-06-10 11:06 | OBCLNT_ITS ---
Vital Signs 06/10/25 11:06 Height 1.63 m Height Method Measured Weight 66.791 kg Weight Measurement Method Standing Scale BMI 25.1 BP 118/78 Blood Pressure Source Automatic Cuff Blood Pressure Location Right Upper Arm Position Sitting Respiration 17 Pulse 84 Pulse Source Monitor Temp 97.8 F Temp Source Temporal Artery Scan Pulse Oximetry (%) 99 Oxygen Delivery Method Room Air Allergies/Home Meds Allergies & Medications Allergies No Known Allergies Allergy (Verified 06/10/25 11:07) Medication Reconciliation vits no.126-ferrous fum 28 mg iron-folic acid 800 mcg tablet (Classic ) tab PO 06/10/25 [History Confirmed 06/10/25] Intake Visit Data Collection New Patient or Established: Established Patient (seen at [facility] within 3 years) 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:: OBC Consent obtained for Telemed Visit: No Seen by Clinical Staff ONLY (RN/MA): No Senior Insight Manager Required: No Do You Feel Safe at Home: Yes Authorities Contacted: N/A PCP or OBGYN visit in last 3 months: Yes Date of Last PCP or OBGYN visit: 06/03/25 Hx Now: Yes Are you currently on any form of Control: No Pain Present Currently: No Pain Scale Used: Ferrer-Matute/Numerical Pain scale:: 0 Smoking Status Smoking Status: Never smoker Questionnaires Covid-19 Vaccine Questionnaire Has patient been vacinated for Covid-19 Have you been vacinated for Covid-19: No PHQ-9 PHQ-2 Over the last 2 weeks, how often have you been bothered by any of the following problems? 1. Little interest or pleasure in doing things: not at all PHQ-9 8. Moving or speaking so slowly that other people could have noticed? - Or the opposite - being so fidgety or restless that you have been moving around a lot more than usual: not at all Source: Developed by Drs. oDm Conklin, Yajaira Oh, Hakeem Chou and colleagues, with an educational emani from [employer]. 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 fetus active, abnormal 1 hr gtt per patinet, she will do 3 hr gtt, denies PTL complaints Get 3 hr gtt don e, TDAP, schedule OB sono for growth. discuss diet and exercise. discuss PTL precaution. continue PNV, rtc 2 week 06/03/25 -?-?-?-?-?-?-?-?-?-?-?-?- 34w 1d 66.905 kg 124/78 absent cephalic 35 135 active doing well, fetus active. no ptl complaints. no leaking or bleeding. 3hr gtt was normal. ASHLYN: BV+, GC/CT-. patient will start flagyl 500 bid x7, . sono results at [facility] pending complete flagyl. discuss safe sex, call for sono results. discuss ptl precaution, fkc bid. continue pnv. increase fluid. rtc 2 week obc 06/10/25 -?-?-?-?-?-?-?-?-?-?-?-?- 35w 1d 66.791 kg 118/78 absent cephalic 35 135 active Doing well. No questions. Reports good movement. Denies leaking or bleeding. No complaints of contractions. GBS today. Call [facility] imaging for patient's ultrasound results. Discussed labor precautions. Discussed kick count with patient. Increase fluids. And return in a week OB check GBS today. Call [facility] imaging for patient's ultrasound results. Discussed labor precautions. Discussed kick count with patient. Increase fluids. And return in a week OB check. Disability at 35 week starts today LAURYN Calculator Estimated Delivery Date Method Current WG Current Estimate 07/14/25 LMP (Certain) 35w 1d Notes Visit Date: 06/10/25 Last Updated by: Carmenza Bustos CNM 05/07/25: ASHLYN GC-/CT-, +BV was treated Visit Date: 05/06/25 Last Updated by: Carmenza Bustos, TERRY 20 yo . LAURYN 07/12/25. lmp 10/07/25. 02/07 : OB sono 19w. LAURYN 07/09/25. A+,abs-,rpr;;nr, rub imm, GC-/CT+/treated, HBSAG-,HCV-, HIV- Office Procedures OB Clinic LOC & Office Proc's Nursing/Assessment Patient Status: Established Patient OB Clinic Nursing Assessment: Medication Reconciliation, Update PMH in EMR and Vital Signs OB Clinic Coordination of Care: Complex Care and Chronic Disease 1-5, Consent,records obtained, informed consent, Education Simp Pt/Fam and 4+ Authorizations needed Special Needs: Heart tones Established Patient Charge Established Patient Point Assignment: 130 Established Patient Point Charge: EP Level 4 (120-155) Assessment & Plan Diagnosis / Problem List (1) Supervision of high risk , unspecified, third trimester: Status: Acute Plan GBS today. Discussed labor precautions. Discussed comfort measures for third trimester complaints. Increase fluids and rest. Practice safe sex. Discussed kick count twice a day. Return in a week OB check. disability starts today Additional Plan Follow Up: 1 Week (obc)
== END 2025-06-10 11:27 | disposition home or self-care (01) ==
LOC: HODSOBC 10:52
PROVIDERS: Supervising Provider Advanced Practice Midwife; Visit Provider Advanced Practice Midwife
DX: O09.93 Supervision of high risk pregnancy, unspecified, third trimester (principal); Z3A.35 35 weeks gestation of pregnancy; Z36.85 Encounter for antenatal screening for Streptococcus B
CPT/HCPCS: 99214; G0463

== ENCOUNTER 2025-06-17 13:02 | Outpatient (AMB) | payer MEDICAID, SELFPAY ==
[2025-06-17 13:07] VITALS: BP 125/75; PULSE 20; RESP 114; TEMP 36.8; O2SAT 98; BMI 25.3
--- NOTE | 2025-06-17 13:07 | OBCLNT_ITS ---
Vital Signs 06/17/25 13:07 Height 1.63 m Height Method Stated Weight 67.302 kg Weight Measurement Method Standing Scale BMI 25.3 BP 125/75 Blood Pressure Source Automatic Cuff Blood Pressure Location Left Upper Arm Position Sitting Respiration 114 H Pulse 20 L Pulse Source Monitor Temp 98.2 F Temp Source Oral Pulse Oximetry (%) 98 Oxygen Delivery Method Room Air Allergies/Home Meds Allergies & Medications Allergies No Known Allergies Allergy (Verified 06/17/25 13:08) Medication Reconciliation vits no.126-ferrous fum 28 mg iron-folic acid 800 mcg tablet (Classic ) tab PO 06/10/25 [History Confirmed 06/17/25] Intake Visit Data Collection New Patient or Established: Established Patient (seen at [facility] within 3 years) 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:: CARE Seen by Clinical Staff ONLY (RN/MA): No Receiving Dock Checker Required: No Do You Feel Safe at Home: Yes Authorities Contacted: N/A PCP or OBGYN visit in last 3 months: Yes Hx Now: Yes Are you currently on any form of Control: No Pain Present Currently: No Pain Scale Used: Ferrer-Matute/Numerical Pain scale:: 0 Smoking Status Smoking Status: Never smoker Questionnaires Covid-19 Vaccine Questionnaire Has patient been vacinated for Covid-19 Have you been vacinated for Covid-19: Yes PHQ-9 PHQ-2 Over the last 2 weeks, how often have you been bothered by any of the following problems? 1. Little interest or pleasure in doing things: not at all 2. Feeling down, depressed, or hopeless: not at all Total score: 0 PHQ-9 3. Trouble falling or staying asleep, or sleeping too much: Not at all 4. Feeling tired or having little energy: Not at all 5. Poor appetite or overeating: Not at all 6. Feeling bad about yourself - or that you are a failure or have let yourself or your family down: Not at all 7. Trouble concentrating on things, such as reading the newspaper or watching television: Not at all 8. Moving or speaking so slowly that other people could have noticed? - Or the opposite - being so fidgety or restless that you have been moving around a lot more than usual: not at all 9. Thoughts that you would be better off or of hurting yourself in some way: Not at all Total score: 0 Source: Developed by Drs. Dom Conklin, Yajaira Oh, Hakeem Chou and colleagues, with an educational emani from [employer] 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 fetus active, abnormal 1 hr gtt per patinet, she will do 3 hr gtt, denies PTL complaints Get 3 hr gtt don e, TDAP, schedule OB sono for growth. discuss diet and exercise. discuss PTL precaution. continue PNV, rtc 2 week 06/03/25 -?-?-?-?-?-?-?-?-?-?-?-?- 34w 1d 66.905 kg 124/78 absent cephalic 35 135 active doing well, fetus active. no ptl complaints. no leaking or bleeding. 3hr gtt was normal. ASHLYN: BV+, GC/CT-. patient will start flagyl 500 bid x7, . sono results at [facility] pending complete flagyl. discuss safe sex, call for sono results. discuss ptl precaution, fkc bid. continue pnv. increase fluid. rtc 2 week obc 06/10/25 -?-?-?-?-?-?--?-?-?-?-?-?- 35w 1d 66.791 kg 118/78 absent cephalic 35 135 active Doing well. No questions. Reports good movement. Denies leaking or bleeding. No complaints of contractions. GBS today. Call [facility] imaging for patient's ultrasound results. Discussed labor precautions. Discussed kick count with patient. Increase fluids. And return in a week OB check GBS today. Call [facility] imaging for patient's ultrasound results. Discussed labor precautions. Discussed kick count with patient. Increase fluids. And return in a week OB check. Disability at 35 week starts today 06/17/25 -?-?-?-?-?-?-?-?-?-?-?-?- 36w 1d 67.302 kg 125/75 absent cephalic 35 145 active Doing well. Denies contractions. Denies leaking fluid. Denies bleeding. Complains of little bit of pressure. Fetus is active. D iscussed GBS is negative. Discussed labor precautions. Discussed kick count twice a day. Increase fluids. Return a week OB check LAURYN Calculator Estimated Delivery Date Method Current WG Current Estimate 07/14/25 LMP (Certain) 36w 1d Other Estimates 07/09/25 Ultrasound #1 36w 6d Notes Visit Date: 06/17/25 Last Updated by: Carmenza Bustos CNM 20 yo . LMP 10/07/24. EDC: 07/14/25. A+,abs-, rpr;;nr, rub imm, hbs-,hiv-,hc-, GC/CT-, nipt-/boy sono 02/12/26: 19w: edc: 07/09/25. GBS- Visit Date: 06/10/25 Last Updated by: Carmenza Bustos CNM 05/07/25: ASHLYN GC-/CT-, +BV was treated Visit Date: 05/06/25 Last Updated by: Carmenza Bustos CNM 20 yo . LAURYN 07/12/25. lmp 10/07/25. 02/07 : OB sono 19w. LAURYN 07/09/25. A+,abs-,rpr;;nr, rub imm, GC-/CT+/treated, HBSAG-,HCV-, HIV- Office Procedures OB Clinic LOC & Office Proc's Nursing/Assessment Patient Status: Established Patient OB Clinic Nursing Assessment: Medication Reconciliation, Update PMH in EMR and Vital Signs OB Clinic Coordination of Care: Complex Care and Chronic Disease 1-5, Consent,records obtained, informed consent, Education Simp Pt/Fam, Lab and Imaging orders, Results/Orders obtained and Staff clarify orders Special Needs: Heart tones Established Patient Charge Established Patient Point Assignment: 135 Established Patient Point Charge: EP Level 4 (120-155) Assessment & Plan Diagnosis / Problem List (1) Uterine size date discrepancy, condition: Status: Acute (2) Supervision of high risk , unspecified, third trimester: Status: Acute Plan Discussed labor precautions. kick count twice a day. Discussed danger signs symptoms and ER precautions. Increase fluids. Return a week OB check Additional Plan Follow Up: 1 Week (obc)
== END 2025-06-17 13:36 | disposition home or self-care (01) ==
LOC: HODSOBC 13:02
PROVIDERS: Supervising Provider Advanced Practice Midwife; Visit Provider Advanced Practice Midwife
DX: O09.893 Supervision of other high risk pregnancies, third trimester (principal); O26.843 Uterine size-date discrepancy, third trimester
CPT/HCPCS: 99214; G0463

== ENCOUNTER 2025-06-18 05:55 | Emergency (ER) | payer MEDICAID, SELFPAY ==
[2025-06-18 05:57] VITALS: BMI 25.4
[2025-06-18 06:00] VITALS: BP 111/63; PULSE 106; RESP 18; TEMP 36.9; O2SAT 99
--- NOTE | 2025-06-18 06:17 | EDNOTE_ITS ---
<Statement entered by Arianna Gimenez MD - 06/18/25 13:41> As co-signing physician, I was present and available for consult prn. I concur with the plan and care as documented by the midlevel provider. Upper Respiratory Inf. RME/HPI General Chief Complaint: Flu Like Symptoms Stated Complaint: COUGHING, CHEST AREA PAIN Time Seen by Provider: 06/18/25 06:12 Source: patient Arrival date/time: 06/18/25 05:55 20-year-old female with no known medical history presents to the emergency room with a chief complaint of coughing, congestion, sore throat x 3 days Mode of arrival: ambulatory Limitations: no limitations Related Data Home Medications ?Medication ?Instructions ?Recorded ?Confirmed vits no.126-ferrous fum tab PO 06/10/2506/17 28 mg iron-folic acid 800 mcg tablet (Classic ) Allergies Allergy/AdvReac Type Severity Reaction Status Date / Time No Known Allergies Allergy Verified 06/18/25 05:56 Review of Systems Review of Systems Systems Reviewed: All systems reviewed, normal except as documented Constitutional Constitutional: Reports system reviewed and no additional complaints, except as documented, Denies fatigue, Denies fever(s), Denies headache(s) and Denies weakness Eyes Eyes: Reports system reviewed and no additional complaints, except as documented, Denies blurry vision and Denies change in vision ENT Ears, Nose, Mouth, and Throat: Reports system reviewed and no additional complaints, except as documented, Denies otalgia, Denies headache(s), Denies nasal congestion, Denies throat swelling and Denies vertigo Cardiovascular Cardiovascular: Reports system reviewed and no additional complaints, except as documented, Denies chest pain, Reports dyspnea and Denies dyspnea on exertion Respiratory Respiratory: Reports system reviewed and no additional complaints, except as documented, Denies chest congestion, Reports cough, Reports dyspnea, Denies dyspnea on exertion and Denies wheezing Gastrointestinal Gastrointestinal: Reports system reviewed and no additional complaints, except as documented, Denies abdominal pain, Denies cramping, Denies nausea and Denies vomiting Genitourinary Genitourinary: Reports system reviewed and no additional complaints, except as documented Musculoskeletal Musculoskeletal: Reports system reviewed and no additional complaints, except as documented and Denies back pain Integumentary/Breasts Skin/Breast: Reports system reviewed and no additional complaints, except as documented and Denies wounds Neurologic Neurologic: Reports system reviewed and no additional complaints, except as documented, Denies confusion, Denies headache(s), Denies lack of coordination, Denies vertigo and Denies weakness Psychiatric Psychiatric: Reports system reviewed and no additional complaints, except as documented, Denies anxiety, Denies confusion, Denies depression, Denies paranoia, Denies suicidal ideation and Denies tactile hallucinations Endocrine Endocrine: Reports system reviewed and no additional complaints, except as documented and Denies fatigue Hematologic/Lymphatic Hematologic/Lymphatic: Reports system reviewed and no additional complaints, except as documented and Denies lymphadenopathy Allergic/Immunologic Allergic/Immunologic: Reports system reviewed and no additional complaints, except as documented, Denies throat swelling, Denies urticaria and Denies wheezing Past Medical History Past Medical History CARDIAC: Negative Congestive Heart Failure RESPIRATORY: Negative Chronic Obstructive Pulmonary Disease (COPD) GENITOURINARY: Negative Renal Disease ENDOCRINE: Negative Diabetes Mellitus Type 1 or Diabetes Mellitus Type 2 OTHER HISTORY: Negative Hospitalization, Autoimmune Disease, Down Syndrome, Developmental Delay, Shingles or Falls Social History SMOKING STATUS: Never smoker SECOND HAND EXPOSURE: No SUBSTANCE USE: does not use ED Exam General Limitations: Present no limitations General appearance: Present alert and in no apparent distress Head Head exam: Present atraumatic Eye Eye exam: Present normal appearance, PERRL and EOMI ENT ENT exam: Present normal exam, normal oropharynx and mucous membranes moist Neck Neck exam: Present normal inspection, full ROM and trachea midline Chest Chest inspection: Present normal inspection and symmetric chest wall rise Respiratory Respiratory exam: Present normal lung sounds bilaterally; Absent respiratory distress, wheezes, stridor, accessory muscle use or prolonged expiratory phase Cardiovascular Cardiovascular exam: Present regular rate, normal rhythm, tachycardia and normal heart sounds Abdominal Exam Abdominal exam: Present soft and normal bowel sounds; Absent tenderness Extremities Exam Extremities exam: Present normal inspection and full ROM Back Exam Back exam: Present normal inspection and full ROM Neurological Exam Neurological exam: Present alert, oriented X3 and CN II-XII intact Psychiatric Psychiatric exam: Present normal affect and normal mood Skin Skin exam: Present warm, dry, intact and normal color Course Quality Measures none Orders Category Date Time Status Bedside COVID-19 Antigen Test NOW Care 06/18/25 06:17 Active Bedside Influenza A&B Antigen Test NOW Care 06/18/25 06:17 Completed Strep A Rapid Stat Lab 06/18/25 06:20 Completed Vital Signs Vital signs: Vital Signs Temperature 98.5 F 06/18/25 06:00 Pulse Rate 106 H 06/18/25 06:00 Respiratory Rate 18 06/18/25 06:00 Blood Pressure 111/63 06/18/25 06:00 Pulse Oximetry (%) 99 06/18/25 06:00 Oxygen Delivery Method Room Air 06/18/25 06:00 O2 saturation 99% within normal limits Upper Respiratory Infection MDM Narrative MDM Narrative:: 20-year-old female with no known medical history presents to the emergency room with a chief complaint of coughing, congestion, sore throat x 3 days Patient is hemodynamically stable and in no apparent distress. The patient is afebrile not tachycardic not tachypneic and O2 saturation is 99% on room air Physical examination shows clear bilateral lung sounds. There is no wheezing or any abnormal breath sounds. There is no accessory muscle use there is no pursed lip breathing. The patient is currently . Patient tested positive for COVID-19. Patient was discharged and educated to follow-up with primary care provider in the next 24 to 48 hours and return to the emergency room for any evidence of worsening signs or symptoms Patient data External records reviewed:: [facility] previous records Clinical information provided by:: patient Social determinants that could affect healthcare access:: none Patient has the following chronic illnesses:: No chronic illness How is presenting disease/condition affected by chronic disease/condition?: no chronic disease Evaluation data The following diagnostics were reviewed and interpreted by me:: lab results and radiology exam(s) Lab and/or radiology exams considered but not ordered:: Labs and radiology exams considered in order Interpretation Summary: N/A Medications / Prescriptions Medications or Prescriptions considered but not ordered:: Medication not given Medication administrations:: Medication not given Consultations Consultation(s) initiated? (list below): No Diagnosis Upper Respiratory Differential Diagnosis: upper respiratory infection, sinusitis, viral infection, influenza, pharyngitis and other (COVID-19) Most likely diagnosis given after review of the tests above:: COVID-19 Admission Indicated Admission indicated?: not indicated Admission Request Was there a request for admission?: No Disposition Plan Disposition Plan: Discharge Discharge Attestation Discharge Attestation: The patient and all family members were given an opportunity to ask questions and understood the discharge instructions. Discharge instructions specifically effects, indications for sooner follow up or return to the emergency department, and the expected course of current diagnosis. Patient condition: Stable Discharge Plan Plan Patient Disposition: HOME (Self Care) Discharge Disposition comment: Stable Prescriptions/Referrals Prescriptions/Med Rec: No Action Classic 28 mg iron- 800 mcg tablet PO Problem List Clinical Impression: COVID-19 Patient/Caregiver Discharge Instructions Education Materials: 2019-nCoV Additional Instructions: Please follow-up with your primary care provider in the next 24 to 48 hours. You tested positive for COVID-19. The treatment for this is symptom management. Please continue to take Tylenol and ibuprofen for fever management. Please increase your oral fluid intake. 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 GIMENEZ
[2025-06-18 06:36] LABS: Strep A Rapid Negative (Negative)
[2025-06-18 06:46] VITALS: RESP 16
== END 2025-06-18 06:46 | disposition home or self-care (01) ==
LOC: SERX 06:56
PROVIDERS: Emergency Provider Nurse Practitioner Family; PCP Nurse Practitioner Family
DX: U07.1 COVID-19 (principal)
CPT/HCPCS: 87400; 87651; 87811; 99283

== ENCOUNTER 2025-06-24 09:22 | Outpatient (AMB) | payer MEDICAID, SELFPAY ==
[2025-06-24 09:40] VITALS: BP 127/82; PULSE 92; RESP 17; TEMP 36.6; O2SAT 99; BMI 26.3
--- NOTE | 2025-06-24 09:40 | OBCLNT_ITS ---
Vital Signs 06/24/25 09:40 Height 1.63 m Height Method Stated Weight 69.91 kg Weight Measurement Method Standing Scale BMI 26.3 BP 127/82 Blood Pressure Source Automatic Cuff Blood Pressure Location Right Upper Arm Position Sitting Respiration 17 Pulse 92 Pulse Source Monitor Temp 97.9 F Temp Source Temporal Artery Scan Pulse Oximetry (%) 99 Oxygen Delivery Method Room Air Allergies/Home Meds Allergies & Medications Allergies No Known Allergies Allergy (Verified 06/24/25 09:44) Medication Reconciliation vits no.126-ferrous fum 28 mg iron-folic acid 800 mcg tablet (Classic ) tab PO 06/10/25 [History Confirmed 06/24/25] Intake Visit Data Collection New Patient or Established: Established Patient (seen at [facility] within 3 years) 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:: 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 1. Little interest or pleasure in doing things: not at all 2. Feeling down, depressed, or hopeless: not at all Total score: 0 PHQ-9 3. Trouble falling or staying asleep, or sleeping too much: Not at all 4. Feeling tired or having little energy: Not at all 5. Poor appetite or overeating: Not at all 6. Feeling bad about yourself - or that you are a failure or have let yourself or your family down: Not at all 7. Trouble concentrating on things, such as reading the newspaper or watching television: Not at all 8. Moving or speaking so slowly that other people could have noticed? - Or the opposite - being so fidgety or restless that you have been moving around a lot more than usual: not at all 9. Thoughts that you would be better off or of hurting yourself in some way: Not at all Total score: 0 If you checked off any problems, how difficult have these problems made it for you to do your work, take care of things at home, or get along with other people?: not difficult at all Source: Developed by Drs. Dom Conklin, Yajaira Oh, Hakeem Chou and colleagues, with an educational emani from [employer]. 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 fetus active, abnormal 1 hr gtt per patinet, she will do 3 hr gtt, denies PTL complaints Get 3 hr gtt don e, TDAP, schedule OB sono for growth. discuss diet and exercise. discuss PTL precaution. continue PNV, rtc 2 week 06/03/25 -?-?-?-?--?-?-?-?-?-?-?-?- 34w 1d 66.905 kg 124/78 absent cephalic 35 135 active doing well, fetus active. no ptl complaints. no leaking or bleeding. 3hr gtt was normal. ASHLYN: BV+, GC/CT-. patient will start flagyl 500 bid x7, . sono results at [facility] pending complete flagyl. discuss safe sex, call for sono results. discuss ptl precaution, fkc bid. continue pnv. increase fluid. rtc 2 week obc 06/10/25 -?-?-?-?-?-?-?-?-?-?-?-?- 35w 1d 66.791 kg 118/78 absent cephalic 35 135 active Doing well. No questions. Reports good movement. Denies leaking or bleeding. No complaints of contractions. GBS today. Call [facility] imaging for patient's ultrasound results. Discussed labor precautions. Discussed kick count with patient. Increase fluids. And return in a week OB check GBS today. Call [facility] imaging for patient's ultrasound results. Discussed labor precautions. Discussed kick count with patient. Increase fluids. And return in a week OB check. Disability at 35 week starts today 06/17/25 -?-?-?-?-?-?-?-?-?-?-?-?- 36w 1d 67.302 kg 125/75 absent cephalic 35 145 active Doing well. Denies contractions. Denies leaking fluid. Denies bleeding. Complains of little bit of pressure. Fetus is active. D iscussed GBS is negative. Discussed labor precautions. Discussed kick count twice a day. Increase fluids. Return a week OB check 06/24/25 -?-?-?-?-?-?-?-?-?-?-?-?- 37w 1d 69.91 kg 127/82 occasional cephalic 36 145 active doing well, fetus active, no labor complaints, denies leaking,bleeding or contraction discuss labor precaution, fkc bid hydrate, discuss danger s/s LAURYN Calculator Estimated Delivery Date Method Current WG Current Estimate 07/14/25 LMP (Certain) 37w 1d Other Estimates 07/09/25 Ultrasound #1 37w 6d Notes Visit Date: 06/17/25 Last Updated by: Carmenza Bustos CNM 20 yo . LMP 10/07/24. EDC: 07/14/25. A+,abs-, rpr;;nr, rub imm, hbs-,hiv-,hc-, GC/CT-, nipt-/boy sono 02/12/26: 19w: edc: 07/09/25. GBS- Visit Date: 06/10/25 Last Updated by: Carmenza Bustos CNM 05/07/25: ASHLYN GC-/CT-, +BV was treated Visit Date: 05/06/25 Last Updated by: Carmenza Bustos CNM 20 yo . LAURYN 07/12/25. lmp 10/07/25. 02/07 : OB sono 19w. LAURYN 07/09/25. A+,abs-,rpr;;nr, rub imm, GC-/CT+/treated, HBSAG-,HCV-, HIV- Office Procedures OB Clinic LOC & Office Proc's Nursing/Assessment Patient Status: Established Patient OB Clinic Nursing Assessment: Medication Reconciliation, Update PMH in EMR and Vital Signs OB Clinic Coordination of Care: Complex Care and Chronic Disease 1-5, Consent,records obtained, informed consent, Education Simp Pt/Fam and Staff clarify orders Special Needs: Heart tones Established Patient Charge Established Patient Point Assignment: 115 Established Patient Point Charge: EP Level 3 (80-115) Assessment & Plan Diagnosis / Problem List (1) Supervision of high risk , unspecified, third trimester: Status: Acute Plan Discussed labor precautions. Discussed danger signs symptoms and ER precautions. Hydrate. kick counts twice a day. Return week OB check Additional Plan Follow Up: 1 Week (obc)
== END 2025-06-24 09:57 | disposition home or self-care (01) ==
LOC: HODSOBC 09:22
PROVIDERS: Supervising Provider Advanced Practice Midwife; Visit Provider Advanced Practice Midwife
DX: O09.93 Supervision of high risk pregnancy, unspecified, third trimester (principal); Z3A.37 37 weeks gestation of pregnancy
CPT/HCPCS: 99213; G0463

== ENCOUNTER 2025-06-30 08:32 | Outpatient (AMB) | payer MEDICAID, SELFPAY ==
[2025-06-30 08:55] VITALS: BP 146/92; PULSE 70; RESP 17; TEMP 36.6; O2SAT 99; BMI 26.0
--- NOTE | 2025-06-30 08:55 | OBCLNT_ITS ---
Vital Signs 06/30/25 08:55 Height 1.63 m Height Method Stated Weight 69.116 kg Weight Measurement Method Standing Scale BMI 26.0 BP 146/92 H Blood Pressure Source Automatic Cuff Blood Pressure Location Right Upper Arm Position Sitting Respiration 17 Pulse 70 Pulse Source Monitor Temp 98 F Temp Source Temporal Artery Scan Pulse Oximetry (%) 99 Oxygen Delivery Method Room Air Allergies/Home Meds Allergies & Medications Allergies No Known Allergies Allergy (Verified 06/30/25 08:56) Medication Reconciliation vits no.126-ferrous fum 28 mg iron-folic acid 800 mcg tablet (Classic ) tab PO 06/10/25 [History Confirmed 06/30/25] Intake Visit Data Collection New Patient or Established: Established Patient (seen at [facility] within 3 years) 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:: OBC 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 by Clinical Staff 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 1. Little interest or pleasure in doing things: not at all 2. Feeling down, depressed, or hopeless: not at all Total score: 0 PHQ-9 3. Trouble falling or staying asleep, or sleeping too much: Not at all 4. Feeling tired or having little energy: Not at all 5. Poor appetite or overeating: Not at all 6. Feeling bad about yourself - or that you are a failure or have let yourself or your family down: Not at all 7. Trouble concentrating on things, such as reading the newspaper or watching television: Not at all 8. Moving or speaking so slowly that other people could have noticed? - Or the opposite - being so fidgety or restless that you have been moving around a lot more than usual: not at all 9. Thoughts that you would be better off or of hurting yourself in some way: Not at all Total score: 0 If you checked off any problems, how difficult have these problems made it for you to do your work, take care of things at home, or get along with other people?: not difficult at all Source: Developed by Drs. Dom Conklin, Yajaira Oh, Hakeem Chou and colleagues, with an educational emani from [employer]. 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 fetus active, abnormal 1 hr gtt per patinet, she will do 3 hr gtt, denies PTL complaints Get 3 hr gtt don e, TDAP, schedule OB sono for growth. discuss diet and exercise. discuss PTL precaution. continue PNV, rtc 2 week 06/03/25 -?-?-?-?-?-?-?-?-?-?-?-?- 34w 1d 66.905 kg 124/78 absent cephalic 35 135 active doing well, fetus active. no ptl complaints. no leaking or bleeding. 3hr gtt was normal. ASHLYN: BV+, GC/CT-. patient will start flagyl 500 bid x7, . sono results at [facility] pending complete flagyl. discuss safe sex, call for sono results. discuss ptl precaution, fkc bid. continue pnv. increase fluid. rtc 2 week obc 06/10/25 -?-?-?-?-?-?-?-?-?-?-?-?- 35w 1d 66.791 kg 118/78 absent cephalic 35 135 active Doing well. No questions. Reports good movement. Denies leaking or bleeding. No complaints of contractions. GBS today. Call [facility] imaging for patient's ultrasound results. Discussed labor precautions. Discussed kick count with patient. Increase fluids. And return in a week OB check GBS today. Call [facility] imaging for patient's ultrasound results. Discussed labor precautions. Discussed kick count with patient. Increase fluids. And return in a week OB check. Disability at 35 week starts today 06/17/25 -?-?-?--?-?-?-?-?-?-?-?-?- 36w 1d 67.302 kg 125/75 absent cephalic 35 145 active Doing well. Denies contractions. Denies leaking fluid. Denies bleeding. Complains of little bit of pressure. Fetus is active. D iscussed GBS is negative. Discussed labor precautions. Discussed kick count twice a day. Increase fluids. Return a week OB check 06/24/25 -?-?-?-?-?-?-?-?-?-?-?-?- 37w 1d 69.91 kg 127/82 occasional cephalic 36 145 active doing well, fetus active, no labor complaints, denies leaking,bleeding or contraction discuss labor precaution, [facility] bid hydrate, discuss danger s/s 06/30/25 -?-?-?-?-?-?-?-?-?-?-?-?- 38w 0d 69.116 kg 146/92 occasional cephalic 37 145 active Doing well. Denies PIH signs and symptoms. Reports good movement. Denies leaking, denies bleeding, denies labor. Repeat blood pressure was 146/92. Doing well. Denies PIH sign s and symptoms. Reports good movement. Denies leaking, denies bleeding, denies labor. Repeat blood pressure was 146/92. protein- Doing well. Denies PIH sign s and symptoms. Reports good movement. Denies leaking, denies bleeding, denies labor. Repeat blood pressure was 146/92. protein-. to [facility] for PIH lab: NST R, LOLLY: 6.1, VTX, PIH labs: wnl, BP: 117/83. transfuse 1 unit RBC, home with precaution, repeat LOLLY 2 days, schedule 1 week Discussed blood pressures with patient. Patient sent to labor and delivery for further blood pressure monitoring and PIH workup. Discussed labor precautions and kick count. Discussed signs symptoms of PIH and ER precautions. Patient return week OB check Discussed blood pressures wi th patient. Patient sent to labor and delivery for further blood pressure monitoring and PIH workup. Discussed labor precautions and kick count. Discussed signs symptoms of PIH and ER precautions. Patient return week OB check. IOL 07/08 LAURYN Calculator Estimated Delivery Date Method Current WG Current Estimate 07/14/25 LMP (Certain) 38w 0d Other Estimates 07/09/25 Ultrasound #1 38w 5d Notes Visit Date: 06/17/25 Last Updated by: Carmenza Bustos CNM 20 yo . LMP 10/07/24. EDC: 07/14/25. A+,abs-, rpr;;nr, rub imm, hbs-,hiv-,hc-, GC/CT-, nipt-/boy sono 02/12/26: 19w: edc: 07/09/25. GBS- Visit Date: 06/10/25 Last Updated by: Carmenza Bustos CNM 05/07/25: ASHLYN GC-/CT-, +BV was treated Visit Date: 05/06/25 Last Updated by: Carmenza Bustos CNM 20 yo . LAURYN 07/12/25. lmp 10/07/25. 02/07 : OB sono 19w. LAURYN 07/09/25. A+,abs-,rpr;;nr, rub imm, GC-/CT+/treated, HBSAG-,HCV-, HIV- Office Procedures OB Clinic LOC & Office Proc's Nursing/Assessment Patient Status: Established Patient OB Clinic Nursing Assessment: Medication Reconciliation, Update PMH in EMR and Vital Signs OB Clinic Coordination of Care: Complex Care and Chronic Disease 1-5, Consent,records obtained, informed consent, Education Simp Pt/Fam and Staff clarify orders Special Needs: Heart tones Established Patient Charge Established Patient Point Assignment: 115 Established Patient Point Charge: EP Level 3 (80-115) Assessment & Plan Diagnosis / Problem List (1) Supervision of high risk , unspecified, third trimester: Status: Acute Plan Discussed PIH precautions. Discussed signs and symptoms of PIH and ER precautions. Labor precautions given with kick count twice a day. Patient was sent to labor and delivery for PIH workup and NST. Return in a week Additional Plan Follow Up: 1 Week 1 Week (obc)
== END 2025-06-30 09:38 | disposition home or self-care (01) ==
LOC: HODSOBC 08:32
PROVIDERS: Supervising Provider Advanced Practice Midwife; Visit Provider Advanced Practice Midwife
DX: O09.93 Supervision of high risk pregnancy, unspecified, third trimester (principal); Z3A.38 38 weeks gestation of pregnancy
CPT/HCPCS: 99213; G0463

== ENCOUNTER 2025-06-30 11:05 | Outpatient (CLI) | payer MEDICAID, SELFPAY ==
[2025-06-30] VITALS (51 sets, daily range): BP systolic 114–145; BP diastolic 69–92; PULSE 73–104; RESP 16–99; TEMP 36.6–37.1; O2SAT 98–100; BMI 26.3
--- NOTE | 2025-06-30 11:18 | XR_ITS ---
Examination: age Limited TECHNIQUE: Limited transabdominal sonographic images pelvis Date and time: June 30, 2025 1245 hours INDICATIONS: Hypertension in the doctor's office today. FINDINGS: Viable intrauterine gestation cephalic presentation spine maternal right Cardiac motion 152 BPM IMPRESSION: Viable intrauterine gestation cephalic presentation
--- NOTE | 2025-06-30 11:18 | XR_ITS ---
Examination: Biophysical profile, ultrasound Date and time of exam: 2024 1240 hours INDICATIONS: Hypertension in the doctor's office today Technique: Multiple transabdominal sonographic images of the pelvis abdomen obtained. Attention is directed to the breathing movement, gross body movement, amniotic fluid volume and tone. Findings: Amniotic fluid index 6.1 cm Total biophysical profile is 8 of 8. breathing movement is 2. Gross body movement is 2. tone is 2. Qualitative amniotic fluid volume is 2 Impression: Biophysical profile is 8 of 8.
[2025-06-30 12:04] LABS: Collection Type, Urine Clean Catch
[2025-06-30 12:07] LABS: Basophils # (Auto) 0.0 Thou/mm3 (0.0-0.2); Basophils % (Auto) 0 % (0-2.5); Eosinophils # (Auto) 0.0 Thou/mm3 (0.0-0.5); Eosinophils % (Auto) 0 % (0-10); Hematocrit 26.3 % (36.0-46.0); Immature Granulocytes Auto 0.04 Thou/mm3 (0.00-0.00); Lymphocytes # (Auto) 1.2 Thou/mm3 (1.0-4.8); Lymphocytes % (Auto) 16 % (10-50); Mean Corpuscular HGB Conc 31.6 g/dl (31.0-37.0); Mean Corpuscular Hemoglobin 20.7 pg (25.0-35.0); Mean Corpuscular Volume 66 fL (80-100); Monocytes # (Auto) 0.4 Thou/mm3 (0.0-0.8); Monocytes % (Auto) 5 % (0-12); Neutrophils # (Auto) 5.5 Thou/mm3 (1.8-7.7); Neutrophils % (Auto) 77 % (37-80); Nucleated Red Blood Cell # 0.00 Thou/mm3 (0.00-0.00); Nucleated Red Blood Cell % 0 /100 WBC (0); Platelet Count 224 Thou/mm3 (140-440); RDW Standard Deviation 43.9 fL (36.4-46.3); Red Blood Count 4.01 Miln/mm3 (4.00-5.20); White Blood Count 7.1 Thou/mm3 (3.6-11.0)
[2025-06-30 12:28] LABS: Bilirubin,Urine Negative (Negative); Blood,Urine Negative (Negative); Clarity,Urine Clear (Clear/Hazy); Color,Urine Lt-Yellow (Lt Yel-Yel); Glucose, Urine Negative (Negative); Ketones,Urine Negative (Negative); Leukocyte Esterase,Urine Negative (Negative); Nitrite,Urine Negative (Negative); PH,Urine 6.5 (5.0-7.0); Protein,Urine Negative (Neg - Trace); RBC,Urine 1 /hpf (0-3); Specific Gravity,Urine 1.014 (1.001-1.035); Squamous Epithelial Cell,Urine 1 /hpf (0-5); Urobilinogen,Urine Negative mg/dL (0.0-1.0); WBC,Urine 1 /hpf (0-5)
[2025-06-30 12:29] LABS: Hemoglobin 8.3 g/dL (12.0-16.0)
[2025-06-30 12:31] LABS: Creatinine,Random Urine 68 mg/dL (30-125); Protein Total, Random Urine 27 mg/dL (1-14)
[2025-06-30 12:36] LABS: Alanine Aminotransferase < 7 U/L (10-49); Albumin, Serum 3.5 gm/dL (3.5-5.0); Albumin/Globulin Ratio 1.4 (1.2-2.2); Alkaline Phosphatase 184 U/L (46-116); Anion Gap 11 (7-16); Aspartate Amino Transferase 15 U/L (0-34); BUN/Creatinine Ratio 10 Ratio (12-20); Bilirubin,Total 0.3 mg/dL (0.3-1.2); Blood Urea Nitrogen 6 mg/dL (9-23); Calcium 8.4 mg/dL (8.3-10.6); Calcium (Corrected) 8.8 mg/dL (8.5-10.1); Carbon Dioxide 20.1 mMol/L (20.0-31.0); Chloride 107 mMol/L (98-107); Creatinine (Component) 0.6 mg/dL (0.6-1.3); Estimated Creatinine Clearance 140.9 mL/min (>60); Globulin 2.5 gm/dL (2.3-3.5); Glucose 140 mg/dL (74-106); LDH (Lactate Dehydrogenase) 182 U/L (120-246); Osmolality,Calculated 275 (275-295); Potassium 3.7 mMol/L (3.4-5.1); Sodium 138 mMol/L (136-145); Total Protein 6.0 gm/dL (5.7-8.2); Uric Acid 3.4 mg/dL (3.1-7.8); eGFR > 60 See Note
[2025-06-30 12:39] LABS: Fibrinogen 441 mg/dL (175-375); INR 0.9 (0.9-1.3); Partial Thromboplastin Time 25.1 Seconds (22.0-36.0); Prothrombin Time 9.8 Seconds (9.0-12.2)
[2025-06-30 12:59] LABS: Path Review Blood Smear Sent to Pathologist
== END 2025-06-30 16:20 | disposition home or self-care (01) ==
LOC: S4S1 11:08 → S4SX 11:09
PROVIDERS: Referring Provider Obstetrics & Gynecology; Visit Provider Advanced Practice Midwife
DX: O16.3 Unspecified maternal hypertension, third trimester (principal); Z3A.38 38 weeks gestation of pregnancy
CPT/HCPCS: 36415; 36430; 59025; 76815; 76819; 80053; 81001; 82570; 83615; 84156; 84550; 85025; 85384; 85610; 85730; 86850; 86900; 86901; 86923; P9016

== ENCOUNTER 2025-07-02 09:50 | Outpatient (CLI) | payer MEDICAID, SELFPAY ==
[2025-07-02 09:56] VITALS: BP 125/84; PULSE 94
[2025-07-02 10:04] VITALS: BP 125/84; PULSE 94; RESP 100; RESP 18; TEMP 36.8; BMI 26.7
--- NOTE | 2025-07-02 10:12 | XR_ITS ---
Examination: Biophysical profile, ultrasound Date and time of exam: July 02, 2025 1111 hours INDICATIONS: Low amniotic fluid index 6.1 cm on ultrasound June 30, 2025, history hypertension Technique: Multiple transabdominal sonographic images of the pelvis abdomen obtained. Attention is directed to the breathing movement, gross body movement, amniotic fluid volume and tone. Findings: Amniotic fluid index 7.3 cm Total biophysical profile is 8 of 8. breathing movement is 2. Gross body movement is 2. tone is 2. Qualitative amniotic fluid volume is 2 Impression: Biophysical profile is 8 of 8.
[2025-07-02 10:19] VITALS: BP 119/81; PULSE 101
[2025-07-02 10:34] VITALS: BP 108/61; PULSE 98
[2025-07-02 10:49] VITALS: BP 117/75; PULSE 97
[2025-07-02 11:04] VITALS: BP 120/78; PULSE 88
== END 2025-07-02 11:45 | disposition home or self-care (01) ==
LOC: S4S1 09:50 → S4SX 09:51
PROVIDERS: Referring Provider Obstetrics & Gynecology; Visit Provider Obstetrics & Gynecology
DX: Z34.03 Encounter for supervision of normal first pregnancy, third trimester (principal); Z3A.38 38 weeks gestation of pregnancy
CPT/HCPCS: 59025; 76819

== ENCOUNTER → 2025-07-04 11:20 | Observation (INO) | payer MEDICAID, SELFPAY ==
[2025-07-04] VITALS (14 sets, daily range): BP systolic 115; BP diastolic 73; PULSE 91–142; RESP 18–20; TEMP 36.9–37.1; O2SAT 98–100; BMI 26.2
== END | disposition home or self-care (01) ==
PROVIDERS: Admitting Provider Obstetrics & Gynecology; Visit Provider Obstetrics & Gynecology
DX: O47.1 False labor at or after 37 completed weeks of gestation (principal); O26.853 Spotting complicating pregnancy, third trimester; Z3A.38 38 weeks gestation of pregnancy
CPT/HCPCS: 59025

== ENCOUNTER 2025-07-04 18:59 | Observation (INO) | payer MEDICAID, SELFPAY ==
[2025-07-04 19:08] VITALS: BMI 26.4
[2025-07-04 19:12] VITALS: BP 133/81; PULSE 100
[2025-07-04 19:24] VITALS: BP 133/81; PULSE 100; RESP 18; RESP 99; TEMP 36.9
[2025-07-04 19:27] VITALS: PULSE 103; O2SAT 85
[2025-07-04 19:28] VITALS: PULSE 101; O2SAT 84
[2025-07-04 19:33] VITALS: PULSE 110; O2SAT 97
== END 2025-07-04 19:45 | disposition home or self-care (01) ==
PROVIDERS: Admitting Provider Obstetrics & Gynecology; Visit Provider Obstetrics & Gynecology
DX: O47.1 False labor at or after 37 completed weeks of gestation (principal); Z3A.38 38 weeks gestation of pregnancy
CPT/HCPCS: 59025; 59899

== ENCOUNTER 2025-07-05 02:44 | Observation (INO) | payer MEDICAID, SELFPAY ==
[2025-07-05 02:50] VITALS: BP 129/85; PULSE 104; RESP 16; RESP 98; TEMP 36.7; BMI 26.2
[2025-07-05 02:52] VITALS: PULSE 109; O2SAT 98
[2025-07-05 02:53] VITALS: BP 129/85; PULSE 104
== END 2025-07-05 03:28 | disposition home or self-care (01) ==
PROVIDERS: Admitting Provider Obstetrics & Gynecology; Visit Provider Obstetrics & Gynecology
DX: O47.1 False labor at or after 37 completed weeks of gestation (principal); Z3A.38 38 weeks gestation of pregnancy
CPT/HCPCS: 59025; 59899

== ENCOUNTER 2025-07-14 14:25 | Outpatient (AMB) | payer MEDICAID, SELFPAY ==
[2025-07-14 14:35] VITALS: BP 123/74; PULSE 92; RESP 17; TEMP 36.7; O2SAT 97; BMI 22.7
--- NOTE | 2025-07-14 14:35 | AMBOBPPN_ITS ---
Vital Signs 07/14/25 14:35 Height 1.63 m Height Method Measured Weight 60.498 kg Weight Measurement Method Standing Scale BMI 22.7 BP 123/74 Blood Pressure Source Automatic Cuff Blood Pressure Location Right Upper Arm Position Sitting Respiration 17 Pulse 92 Pulse Source Monitor Temp 98.1 F Temp Source Temporal Artery Scan Pulse Oximetry (%) 97 Oxygen Delivery Method Room Air Allergies/Home Meds Allergies & Medications Allergies No Known Allergies Allergy (Verified 07/14/25 14:36) Medication Reconciliation vits no.126-ferrous fum 28 mg iron-folic acid 800 mcg tablet (Classic ) 1 tab PO QDAY 06/10/25 [History Confirmed 07/14/25] Intake Visit Data Collection New Patient or Established: Established Patient (seen at [facility] within 3 years) 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:: FOLLOW UP Consent obtained for Telemed Visit: No Seen by Clinical Staff ONLY (RN/MA): No Tax Services Manager Required: No Do You Feel Safe at Home: Yes Authorities Contacted: N/A PCP or OBGYN visit in last 3 months: Yes Date of Last PCP or OBGYN visit: 07/05/25 Hx Now: No Are you currently on any form of Control: No Pain Present Currently: No Pain Scale Used: Ferrer-Matute/Numerical Pain scale:: 0 Smoking Status 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: Past Medical History Past Medical History: No Hx Renal Disease, No Hx Diabetes Mellitus Type 1 and No Hx Diabetes Mellitus Type 2 Questionnaires Covid-19 Vaccine Questionnaire Has patient been vacinated for Covid-19 Have you been vacinated for Covid-19: No Social History Living Situation History Lives With: Family Housing: House Tobacco History Smoking Status: Never smoker Second Hand Smoke Exposure: No Alcohol History Alcohol Intake: Never Domestic Abuse History Do You Feel Safe at Home: Yes Care OB Visit Log OB Flowsheet Initial Weight: Not Recorded Date -?-?-?-?-?-?-?-?-?-?-?-?- EGA Weight BP Alb Glu CTX Pres Fundal ht FHR Mov Dilation Station Effacement Hx Notes Visit Note 05/06/25 -?-?-?-?-?-?-?-?-?-?-?-?- 30w 1d 65.091 kg 115/71 absent unknown 30 135 active doing well. fetus active, abnormal 1 hr gtt per patinet, she will do 3 hr gtt, denies PTL complaints Get 3 hr gtt DEJAN escudero, schedule OB sono for growth. discuss diet and exercise. discuss PTL precaution. continue PNV, rtc 2 week 06/03/25 -?-?-?-?-?-?-?-?-?-?-?-?- 34w 1d 66.905 kg 124/78 absent cephalic 35 135 active doing well, fetus active. no ptl complaints. no leaking or bleeding. 3hr gtt was normal. ASHLYN: BV+, GC/CT-. patient will start flagyl 500 bid x7, . sono results at [facility] pending complete flagyl. discuss safe sex, call for sono results. discuss ptl precaution, fkc bid. continue pnv. increase fluid. rtc 2 week obc 06/10/25 -?-?-?-?-?-?-?-?-?-?-?-?- 35w 1d 66.791 kg 118/78 absent cephalic 35 135 active Doing well. No questions. Reports good movement. Denies leaking or bleeding. No complaints of contractions. GBS today. [facility] for patient's ultrasound results. Discussed labor precautions. Discussed kick count with patient. Increase fluids. And return in a week OB check GBS today. [facility] for patient's ultrasound results. Discussed labor precautions. Discussed kick count with patient. Increase fluids. And return in a week OB check. Disability at 35 week starts today 06/17/25 -?-?-?-?-?-?-?-?-?-?-?-?- 36w 1d 67.302 kg 125/75 absent cephalic 35 145 active Doing well. Denies contractions. Denies leaking fluid. Denies bleeding. Complains of little bit of pressure. Fetus is active. D iscussed GBS is negative. Discussed labor precautions. Discussed kick count twice a day. Increase fluids. Return a week OB check 06/24/25 -?-?-?-?-?-?-?-?-?-?-?-?- 37w 1d 69.91 kg 127/82 occasional cephalic 36 145 active doing well, fetus active, no labor complaints, denies leaking,bleeding or contraction discuss labor precaution, [facility] bid hydrate, discuss danger s/s 06/30/25 -?-?-?-?-?-?-?-?-?-?-?-?- 38w 0d 69.116 kg 146/92 occasional cephalic 37 145 active Doing well. Denies PIH signs and symptoms. Reports good movement. Denies leaking, denies bleeding, denies labor. Repeat blood pressure was 146/92. Doing well. Denies PIH sign s and symptoms. Reports good movement. Denies leaking, denies bleeding, denies labor. Repeat blood pressure was 146/92. protein- Doing well. Denies PIH sign s and symptoms. Reports good movement. Denies leaking, denies bleeding, denies labor. Repeat blood pressure was 146/92. protein-. to [facility] for PIH lab: NST R, LOLLY: 6.1, VTX, PIH labs: wnl, BP: 117/83. transfuse 1 unit RBC, home with precaution, repeat LOLLY 2 days, schedule 1 week Discussed blood pressures with patient. Patient sent to labor and delivery for further blood pressure monitoring and PIH workup. Discussed labor precautions and kick count. Discussed signs symptoms of PIH and ER precautions. Patient return week OB check Discussed blood pressures wi th patient. Patient sent to labor and delivery for further blood pressure monitoring and PIH workup. Discussed labor precautions and kick count. Discussed signs symptoms of PIH and ER precautions. Patient return week OB check. IOL 07/08 LAURYN Calculator Estimated Delivery Date Method Current WG Current Estimate 07/14/25 LMP (Certain) 40w 0d Other Estimates 07/09/25 Ultrasound #1 40w 5d Notes Visit Date: 06/17/25 Last Updated by: Carmenza Bustos CNM 20 yo . LMP 10/07/24. EDC: 07/14/25. A+,abs-, rpr;;nr, rub imm, hbs-, hiv-,hc-, GC/CT-, nipt-/boy sono 02/12/26: 19w: edc: 07/09/25. GBS- Visit Date: 06/10/25 Last Updated by: Carmenza Bustos CNM 05/07/25: ASHLYN GC-/CT-, +BV was treated Visit Date: 05/06/25 Last Updated by: Carmenza Bustos, TERRY 20 yo . LAURYN 07/12/25. lmp 10/07/25. 02/07 : OB sono 19w. LAURYN 07/09/25. A+,abs-,rpr;;nr, rub imm, GC-/CT+/treated, HBSAG-,HCV-, HIV- HPI Interval History: 20-year-old 1 para 1 for 10-day postop visit. Patient was a primary C- section July 05, 2025 for arrest of descent and distress. Patient del ivered at [facility]. Baby boy weighing 7 pounds 11 ounces. Patient is breast and bottlefeeding she has good help at home. No interval complaints. She is voiding and passing gas and BMs. No complaints of infection. The father the baby's involved. Unsure about control. 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 Lungs clear no wheezes. Abdomen is soft nontender. Uterus well involuted. Perineum is intact no lacerations. No swelling. Small lochia. Negative Homans' sign. 2+ DTRs. No edema no swelling. Breasts are soft, nipples intact, no mastitis. low transverse incision intact, well healed, no s/s of infection, uterus 2 below Office Procedures OB Clinic LOC & Office Proc's Nursing/Assessment Patient Status: Established Patient OB Clinic Nursing Assessment: Medication Reconciliation, Update PMH in EMR and Vital Signs OB Clinic Coordination of Care: Complex Care and Chronic Disease 1-5, Consent,records obtained, informed consent and Education Simp Pt/Fam Established Patient Charge Established Patient Point Assignment: 75 Post Follow-up Visit Post Follow up Visit: Yes Assessment & Plan Diagnosis / Problem List (1) 2 weeks follow-up: Status: Acute Plan No heavy lifting. No sex. Continue prenatals. Tylenol ibuprofen for discomfort. I discussed latching, breast feeding positions. And I also talked about pumping. Increase fluids. Offered contraception patient declined for now. Return in 3 weeks visit Care Reviewed delivery summary and any complications: Yes Uterus involuted to: 1 below Perineal / incision healing noted: Yes Screened for depression: Yes Depression counseling provided: No Discussed family planning & contraception: Yes Contraception planned: unsure Counseling on safe resumption of sexual activity: Yes Counseling on gradual excercise: Yes Discussed and concerns (describe), provided support: Yes Referred to diabetes solutions specialist: Yes Counseled on good nutrition, hydration, and self care: Yes Reviewed vaccine status: No Chronic & current problems reconciled on problem list: Yes care discussed; questions answered: feeding Follow up: routine/prn (no sex,no heavy lifting, rtc 3 week pp visit and contraception)
== END 2025-07-14 15:04 | disposition home or self-care (01) ==
LOC: HODSOBC 14:25
PROVIDERS: Supervising Provider Advanced Practice Midwife; Visit Provider Advanced Practice Midwife
DX: Z39.2 Encounter for routine postpartum follow-up (principal); Z39.1 Encounter for care and examination of lactating mother
CPT/HCPCS: 59430

== ENCOUNTER 2025-08-26 10:56 | Outpatient (AMB) | payer MEDICAID, SELFPAY ==
[2025-08-26 11:04] VITALS: BP 119/72; PULSE 64; RESP 17; TEMP 36.7; O2SAT 98; BMI 21.0
--- NOTE | 2025-08-26 11:04 | AMBOBPPN_ITS ---
Vital Signs 08/26/25 11:04 Height 1.63 m Height Method Stated Weight 55.849 kg Weight Measurement Method Standing Scale BMI 21.0 BP 119/72 Blood Pressure Source Automatic Cuff Blood Pressure Location Right Upper Arm Position Sitting Respiration 17 Pulse 64 Pulse Source Monitor Temp 98.0 F Temp Source Temporal Artery Scan Pulse Oximetry (%) 98 Oxygen Delivery Method Room Air Allergies/Home Meds Allergies & Medications Allergies No Known Allergies Allergy (Verified 08/26/25 11:07) Medication Reconciliation vits no.126-ferrous fum 28 mg iron-folic acid 800 mcg tablet (Classic ) 1 tab PO QDAY 06/10/25 [History Confirmed 08/11/25] Intake Visit Data Collection New Patient or Established: Established Patient (seen at [facility] within 3 years) 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:: Seen by Clinical Staff ONLY (RN/MA): No Body Joiner Required: No Do You Feel Safe at Home: Yes Authorities Contacted: N/A PCP or OBGYN visit in last 3 months: Yes Date of Last PCP or OBGYN visit: 08/11/25 Hx Now: No Are you currently on any form of Control: No Last menstrual period: 08/19/25 Pain Present Currently: Yes Pain Location: Abdomen Pain Scale Used: Ferrer-Matute/Numerical Pain scale:: 6 Smoking Status 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 Medical History Past Medical History: No Hx Renal Disease, No Hx Diabetes Mellitus Type 1 and No Hx Diabetes Mellitus Type 2 Questionnaires Covid-19 Vaccine Questionnaire Has patient been vacinated for Covid-19 Have you been vacinated for Covid-19: Yes Social History Living Situation History Marital Status: Life Partner Lives With: Family Housing: House Tobacco History Smoking Status: Never smoker Second Hand Smoke Exposure: No Alcohol History Alcohol Intake: Never Domestic Abuse History Do You Feel Safe at Home: Yes EPDS - PP Depression Screening [place] Pospartum Depression Screen I have been able to laugh and see the funny side of things: (0) As much as I always could I have looked forward with enjoyment to things: (0) As much as I ever did I have blamed myself unnecessarily when things went wrong: (1) Not very often I have been anxious or worried for no good reason: (1) Hardly ever I have felt scared or panicky for no very good reason: (1) No, not much Things have been getting on top of me: (0) No, I have been coping as well as ever I have been so unhappy that I have had difficulty sleeping: (0) No, not at all I have felt sad or miserable: (0) No, not at all I have been so unhappy that I have been crying: (1) Only occasionally The thought of harming myself has occurred to me: (0) Never EPDS completed yes Care OB Visit Log OB Flowsheet Initial Weight: Not Recorded Date -?-?-?-?-?-?-?-?-?-?-?-?- EGA Weight BP Alb Glu CTX Pres Fundal ht FHR Mov Dilation Station Effacement Hx Notes Visit Note 05/06/25 -?-?-?-?-?-?-?-?-?-?-?-?- 30w 1d 65.091 kg 115/71 absent unknown 30 135 active doing well. fetus active, abnormal 1 hr gtt per patinet, she will do 3 hr gtt, denies PTL complaints Get 3 hr gtt don e, TDAP, schedule OB sono for growth. discuss diet and exercise. discuss PTL precaution. continue PNV, rtc 2 week 06/03/25 -?-?--?-?-?-?-?-?-?-?-?-?- 34w 1d 66.905 kg 124/78 absent cephalic 35 135 active doing well, fetus active. no ptl complaints. no leaking or bleeding. 3hr gtt was normal. ASHLYN: BV+, GC/CT-. patient will start flagyl 500 bid x7, . sono results at [facility] pending complete flagyl. discuss safe sex, call for sono results. discuss ptl precaution, fkc bid. continue pnv. increase fluid. rtc 2 week obc 06/10/25 -?-?-?-?-?-?-?-?-?-?-?-?- 35w 1d 66.791 kg 118/78 absent cephalic 35 135 active Doing well. No questions. Reports good movement. Denies leaking or bleeding. No complaints of contractions. GBS today. Call [facility] imaging for patient's ultrasound results. Discussed labor precautions. Discussed kick count with patient. Increase fluids. And return in a week OB check GBS today. Call [facility] for patient's ultrasound results. Discussed labor precautions. Discussed kick count with patient. Increase fluids. And return in a week OB check. Disability at 35 week starts today 06/17/25 -?-?-?-?-?-?-?-?-?-?-?-?- 36w 1d 67.302 kg 125/75 absent cephalic 35 145 active Doing well. Denies contractions. Denies leaking fluid. Denies bleeding. Complains of little bit of pressure. Fetus is active. D iscussed GBS is negative. Discussed labor precautions. Discussed kick count twice a day. Increase fluids. Return a week OB check 06/24/25 -?-?-?-?-?-?-?-?-?-?-?-?- 37w 1d 69.91 kg 127/82 occasional cephalic 36 145 active doing well, fetus active, no labor complaints, denies leaking,bleeding or contraction discuss labor precaution, c bid hydrate, discuss danger s/s 06/30/25 -?-?-?-?-?-?-?-?-?-?-?-?- 38w 0d 69.116 kg 146/92 occasional cephalic 37 145 active Doing well. Denies PIH signs and symptoms. Reports good movement. Denies leaking, denies bleeding, denies labor. Repeat blood pressure was 146/92. Doing well. Denies PIH sign s and symptoms. Reports good movement. Denies leaking, denies bleeding, denies labor. Repeat blood pressure was 146/92. protein- Doing well. Denies PIH sign s and symptoms. Reports good movement. Denies leaking, denies bleeding, denies labor. Repeat blood pressure was 146/92. protein-. to [facility] for PIH lab: NST R, LOLLY: 6.1, VTX, PIH labs: wnl, BP: 117/83. transfuse 1 unit RBC, home with precaution, repeat LOLLY 2 days, schedule 1 week Discussed blood pressures with patient. Patient sent to labor and delivery for further blood pressure monitoring and PIH workup. Discussed labor precautions and kick count. Discussed signs symptoms of PIH and ER precautions. Patient return week OB check Discussed blood pressures wi th patient. Patient sent to labor and delivery for further blood pressure monitoring and PIH workup. Discussed labor precautions and kick count. Discussed signs symptoms of PIH and ER precautions. Patient return week OB check. IOL 07/08 LAURYN Calculator Estimated Delivery Date Method Current WG Current Estimate 07/14/25 LMP (Certain) 46w 1d Other Estimates 07/09/25 Ultrasound #1 46w 6d Notes Visit Date: 06/17/25 Last Updated by: Carmenza Bustos CNM 20 yo . LMP 10/07/24. EDC: 07/14/25. A+,abs-, rpr;;nr, rub imm, hbs-,hiv-,hc-, GC/CT-, nipt-/boy sono 02/12/26: 19w: edc: 07/09/25. GBS- Visit Date: 06/10/25 Last Updated by: Carmenza Bustos CNM 05/07/25: ASHLYN GC-/CT-, +BV was treated Visit Date: 05/06/25 Last Updated by: Carmenza Bustos CNM 20 yo . LAURYN 07/12/25. lmp 10/07/25. 02/07 : OB sono 19w. LAURYN 07/09/25. A+,abs-,rpr;;nr, rub imm, GC-/CT+/treated, HBSAG-,HCV-, HIV- HPI Interval History: 20-year-old 1 para 1 for 6-week . Patient had a primary C- section July 05, 2025 for distress. Patient had her labor at [facility]. She was 39 weeks when she went to labor. Patient had a baby boy weighing 7 pounds 1. she is breast-feeding. No complaints of pain or discomfort at this time. Good family support. She is happy. Denies any depression. 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 Lungs clear no wheezes. Abdomen is soft nontender. Uterus well involuted. Perineum is intact no lacerations. No swelling. Small lochia. Negative Homans' sign. 2+ DTRs. No edema no swelling. Breasts are soft, LUST intact, no redness Office Procedures OBC Clinic LOC & Office Proc's Nursing/Assessment Patient Status: Established Patient OB Clinic Nursing Assessment: Medication Reconciliation, Update PMH in EMR and Vital Signs OB Clinic Coordination of Care: Complex Care and Chronic Disease 1-5, Complex Care/Chronic Disease 5 or more, Consent,records obtained, informed consent, Education Simp Pt/Fam and Staff clarify orders Established Patient Charge Established Patient Point Assignment: 120 Established Patient Point Charge: EP Level 4 (120-155) Antepartum Initial or Follow-up Antepartum Follow up Visit: Yes Assessment & Plan Diagnosis / Problem List (1) Routine Follow-Up: (2) 6 weeks follow-up: Status: Acute Plan I gave patient a note to return back to work September 03. Okay to walk and start light weight exercises. Reviewed diet. Discussed condom use should she decide to have sexual intercourse. And we discussed spacing. Continue vitamins and folic acid. Reviewed latching and breast-feeding positions. Return as needed when she is ready for contraception Care Uterus involuted to: 4 below Perineal / incision healing noted: Yes Screened for depression: Yes Depression counseling provided: No Discussed family planning & contraception: Yes Contraception planned: unsure Counseling on safe resumption of sexual activity: Yes Counseling on gradual excercise: Yes Discussed and concerns (describe), provided support: Yes Referred to vocational rehabilitation specialist: No Counseled on good nutrition, hydration, and self care: Yes Reviewed vaccine status: No Chronic & current problems reconciled on problem list: Yes Infant care discussed; questions answered: feeding Follow up: routine/prn Additional counseling & anticipatory guidance provided: RTC as needed for contraception (FP) Tobacco Smoking Status: Never smoker
== END 2025-08-26 11:32 | disposition home or self-care (01) ==
LOC: HODSOBC 10:56
PROVIDERS: Supervising Provider Advanced Practice Midwife; Visit Provider Advanced Practice Midwife
DX: Z39.2 Encounter for routine postpartum follow-up (principal); Z39.1 Encounter for care and examination of lactating mother
CPT/HCPCS: 99214; Z1034; G0463